=== PATIENT | male | born 1940 | race Caucasian/White ===

== ENCOUNTER 2021-03-27 11:37 | Inpatient (IN) ==
[2021-03-27 12:13] LABS: Basophils # 0.1 K/mcL (0.0-0.2); Eosinophils # 0.2 K/mcL (0.0-0.6); Eosinophils % 2.1 %; Hematocrit 37.8 % (37.5-50.1); Immature Granulocytes % 0.4 % (0-4); Lymphocytes # 1.9 K/mcL (0.6-4.6); Lymphocytes % 27.1 %; Mean Corpuscular HGB Conc 29.1 g/dL (31.6-35.5); Mean Corpuscular Hemoglobin 22.2 pg (28.0-33.3); Mean Corpuscular Volume 76.4 fL (83.0-100.0); Mean Platelet Volume 10.2 fL (9.4-12.4); Monocytes # 0.7 K/mcL (0.0-1.3); Monocytes % 10.5 %; Neutrophils # 4.2 K/mcL (1.6-8.9); Platelet Count 328 K/mcL (140-400); Red Blood Count 4.95 M/mcL (4.19-5.50); Red Cell Distribution Width 19.9 % (11.5-14.5); Segmented Neutrophils % 58.9 %; White Blood Count 7.1 K/mcL (4.3-11.1)
[2021-03-27 12:35] LABS: BUN/Creatinine Ratio 12 (6-26); Blood Urea Nitrogen 14 mg/dL (8-23); Calcium 9.4 mg/dL (8.6-10.3); Carbon Dioxide 26 mEq/L (23-29); Chloride 103 mEq/L (98-107); Glucose 97 mg/dL (70-105); Osmolality,Calculated 284 (280-300); Potassium 3.8 mEq/L (3.5-5.1); Sodium 137 mEq/L (136-145); Troponin I < 0.03 ng/mL (< 0.04); eGFR For African Americans > 60 (> 60); eGFR For Non-African Americans > 60 (> 60)
[2021-03-27 12:35] LABS: Bacteria,Urine Few per hpf (None-Few); Bilirubin,Urine Negative (Negative); Blood,Urine Trace (Negative); Calcium Oxalate Crystals,Urine Present per hpf; Clarity,Urine Clear (Clear); Color,Urine Yellow (Yellow); Glucose,Urine (UA) Normal (Normal); Ketones,Urine Negative (Negative); Leukocyte Esterase,Urine Negative (Negative); Mucus,Urine Many per lpf (None-Few); Nitrite,Urine Negative (Negative); Protein,Urine 50 mg/dL (Neg-Trace); Specific Gravity,Urine 1.021 (1.010-1.025); Squamous Epithelial Cell,Urine Few per hpf (None-Few); Urobilinogen,Urine Normal (Normal)
[2021-03-27 14:53] LABS: Magnesium 2.3 mg/dL (1.6-2.6); Phosphorous 3.3 mg/dL (2.7-4.5)
[2021-03-27] MEDS ORDERED: QUEtiapine Fumarate 25 MG TABLET PO SCH (14:57)
[2021-03-27] MEDS ORDERED: Naloxone 0.4 MG/ML INJ IVP PRN (14:59)
[2021-03-27] MEDS ORDERED: Ondansetron 4 MG/2 ML VIAL IVP PRN (14:59)
[2021-03-27] MEDS: traZODone 50 MG TABLET PO SCH ×2 (16:48→19:57)
[2021-03-27] MEDS: QUEtiapine Fumarate 100 MG TABLET PO SCH (19:56)
[2021-03-27] MEDS ORDERED: traZODone 50 MG TABLET PO SCH (21:00)
[2021-03-28] MEDS: Metoprolol XL (24 HR) Succ 25 MG TAB.ER.24H PO SCH (09:07)
[2021-03-28] MEDS: traZODone 50 MG TABLET PO SCH ×3 (09:08→21:21)
[2021-03-28] MEDS: QUEtiapine Fumarate 25 MG TABLET PO SCH ×2 (09:08→13:03)
[2021-03-28] MEDS ORDERED: QUEtiapine Fumarate 25 MG TABLET PO SCH (14:00)
[2021-03-28] MEDS: QUEtiapine Fumarate 100 MG TABLET PO SCH (21:16)
[2021-03-29] MEDS: Metoprolol XL (24 HR) Succ 25 MG TAB.ER.24H PO SCH (10:24)
[2021-03-29] MEDS: traZODone 50 MG TABLET PO SCH ×3 (10:24→22:02)
[2021-03-29] MEDS: QUEtiapine Fumarate 25 MG TABLET PO SCH ×2 (10:25→13:41)
[2021-03-29] MEDS: Melatonin 3 MG TABLET PO SCH (22:02)
[2021-03-29] MEDS: QUEtiapine Fumarate 100 MG TABLET PO SCH (22:02)
[2021-03-30] MEDS: Metoprolol XL (24 HR) Succ 25 MG TAB.ER.24H PO SCH (10:30)
[2021-03-30] MEDS: QUEtiapine Fumarate 25 MG TABLET PO SCH ×2 (10:30→15:59)
[2021-03-30] MEDS: traZODone 50 MG TABLET PO SCH ×3 (10:30→20:48)
[2021-03-30] MEDS: QUEtiapine Fumarate 100 MG TABLET PO SCH (20:48)
[2021-03-30] MEDS: Melatonin 3 MG TABLET PO SCH (20:49)
[2021-03-30] MEDS ORDERED: Haloperidol Lactate 5 MG/ML VIAL IM ONE (22:32)
[2021-03-31] MEDS: Metoprolol XL (24 HR) Succ 25 MG TAB.ER.24H PO SCH (10:04)
[2021-03-31] MEDS: QUEtiapine Fumarate 25 MG TABLET PO SCH ×2 (10:04→14:09)
[2021-03-31] MEDS: traZODone 50 MG TABLET PO SCH ×3 (10:05→21:20)
[2021-03-31] MEDS: Melatonin 3 MG TABLET PO SCH (21:18)
[2021-03-31] MEDS: QUEtiapine Fumarate 100 MG TABLET PO SCH (21:19)
[2021-04-01] MEDS: Metoprolol XL (24 HR) Succ 25 MG TAB.ER.24H PO SCH (08:25)
[2021-04-01] MEDS: traZODone 50 MG TABLET PO SCH ×3 (08:26→20:46)
[2021-04-01] MEDS: QUEtiapine Fumarate 25 MG TABLET PO SCH ×2 (08:26→15:14)
[2021-04-01] MEDS: Melatonin 3 MG TABLET PO SCH (20:46)
[2021-04-01] MEDS: QUEtiapine Fumarate 100 MG TABLET PO SCH (20:46)
[2021-04-02] MEDS: *HR* Enoxaparin 40 MG/0.4 ML SYRINGE SQ SCH (06:28)
[2021-04-02] MEDS: QUEtiapine Fumarate 25 MG TABLET PO SCH ×2 (07:51→13:46)
[2021-04-02] MEDS: traZODone 50 MG TABLET PO SCH ×3 (07:51→22:03)
[2021-04-02] MEDS: Metoprolol XL (24 HR) Succ 25 MG TAB.ER.24H PO SCH (08:20)
[2021-04-02] MEDS ORDERED: *HR* LORazepam 0.5 MG TABLET PO ONE (15:46)
[2021-04-02] MEDS ORDERED: *HR* LORazepam 2 MG/ML VIAL IVP ONE (15:48)
[2021-04-02] MEDS ORDERED: *HR* Promethazine 25 MG/ML VIAL IM ONE (15:54)
[2021-04-02] MEDS ORDERED: diazePAM 10 MG/2 ML SYRINGE IVP ONE (18:19)
[2021-04-02] MEDS: Melatonin 3 MG TABLET PO SCH (22:02)
[2021-04-02] MEDS: QUEtiapine Fumarate 100 MG TABLET PO SCH (22:08)
[2021-04-02] MEDS: *HR* LORazepam 2 MG/ML VIAL IVP PRN (22:22)
[2021-04-03] MEDS: Metoprolol XL (24 HR) Succ 25 MG TAB.ER.24H PO SCH (08:24)
[2021-04-03] MEDS: *HR* LORazepam 2 MG/ML VIAL IVP PRN ×2 (08:24→14:33)
[2021-04-03] MEDS: traZODone 50 MG TABLET PO SCH ×3 (08:24→20:59)
[2021-04-03] MEDS: QUEtiapine Fumarate 25 MG TABLET PO SCH ×2 (08:24→14:34)
[2021-04-03] MEDS: *HR* Enoxaparin 40 MG/0.4 ML SYRINGE SQ SCH (08:31)
[2021-04-03] MEDS: Melatonin 3 MG TABLET PO SCH (20:58)
[2021-04-03] MEDS: QUEtiapine Fumarate 100 MG TABLET PO SCH (20:58)
[2021-04-04 02:15] LABS: Basophils # 0.1 K/mcL (0.0-0.2); Basophils % 1.3 %; Eosinophils # 0.2 K/mcL (0.0-0.6); Eosinophils % 3.6 %; Hematocrit 39.6 % (37.5-50.1); Hemoglobin 11.9 g/dL (12.9-16.9); Immature Granulocytes % 0.2 % (0-4); Lymphocytes # 2.4 K/mcL (0.6-4.6); Lymphocytes % 37.8 %; Mean Corpuscular HGB Conc 30.1 g/dL (31.6-35.5); Mean Corpuscular Hemoglobin 23.2 pg (28.0-33.3); Mean Corpuscular Volume 77.3 fL (83.0-100.0); Mean Platelet Volume 10.3 fL (9.4-12.4); Monocytes # 0.6 K/mcL (0.0-1.3); Monocytes % 8.7 %; Neutrophils # 3.1 K/mcL (1.6-8.9); Platelet Count 276 K/mcL (140-400); Red Blood Count 5.12 M/mcL (4.19-5.50); Red Cell Distribution Width 21.9 % (11.5-14.5); Segmented Neutrophils % 48.4 %; White Blood Count 6.4 K/mcL (4.3-11.1)
[2021-04-04 02:33] LABS: BUN/Creatinine Ratio 13 (6-26); Blood Urea Nitrogen 14 mg/dL (8-23); Calcium 9.2 mg/dL (8.6-10.3); Carbon Dioxide 23 mEq/L (23-29); Chloride 106 mEq/L (98-107); Glucose 92 mg/dL (70-105); Magnesium 2.2 mg/dL (1.6-2.6); Osmolality,Calculated 286 (280-300); Potassium 3.6 mEq/L (3.5-5.1); Sodium 138 mEq/L (136-145); eGFR For African Americans > 60 (> 60); eGFR For Non-African Americans > 60 (> 60)
[2021-04-04] MEDS: *HR* Enoxaparin 40 MG/0.4 ML SYRINGE SQ SCH (05:46)
[2021-04-04] MEDS: QUEtiapine Fumarate 25 MG TABLET PO SCH ×2 (09:25→16:45)
[2021-04-04] MEDS: traZODone 50 MG TABLET PO SCH ×3 (09:25→20:01)
[2021-04-04] MEDS: Metoprolol XL (24 HR) Succ 25 MG TAB.ER.24H PO SCH (09:25)
[2021-04-04] MEDS: QUEtiapine Fumarate 100 MG TABLET PO SCH (20:00)
[2021-04-04] MEDS: Melatonin 3 MG TABLET PO SCH (20:00)
[2021-04-05 03:04] LABS: Campylobacter by PCR Not detected (Not detect)
[2021-04-05 03:05] LABS: Adenovirus F 40/41 PCR Not detected (Not detect); Astrovirus PCR Not detected (Not detect); C.difficile Toxin A/B Gene PCR DETECTED (Not detect); Cryptosporidium by PCR Not detected (Not detect); Cyclospora cayetanensis PCR Not detected (Not detect); E. coli O157 by PCR Not detected (Not detect); Entamoeba histolytica PCR Not detected (Not detect); Enteroaggregative E.coli(EAEC) Not detected (Not detect); Enteropathogenic E.coli(EPEC) Not detected (Not detect); Enterotoxigenic E.coli (ETEC) Not detected (Not detect); Giardia lamblia PCR Not detected (Not detect); Norovirus GI/GII PCR Not detected (Not detect); Plesiomonas shigelloides PCR Not detected (Not detect); Rotavirus A PCR Not detected (Not detect); Salmonella PCR Not detected (Not detect); Sapovirus PCR Not detected (Not detect); Shig/EnteroinvasiveE coli EIEC Not detected (Not detect); Shigalike tox-prod E coli STEC Not detected (Not detect); Vibrio PCR Not detected (Not detect); Vibrio cholerae PCR Not detected (Not detect); Yersinia enterocolitica PCR Not detected (Not detect)
[2021-04-05] MEDS: *HR* Enoxaparin 40 MG/0.4 ML SYRINGE SQ SCH (06:15)
[2021-04-05] MEDS: Metoprolol XL (24 HR) Succ 25 MG TAB.ER.24H PO SCH (10:07)
[2021-04-05] MEDS: QUEtiapine Fumarate 25 MG TABLET PO SCH ×2 (10:07→17:27)
[2021-04-05] MEDS: traZODone 50 MG TABLET PO SCH ×3 (10:07→20:56)
[2021-04-05] MEDS ORDERED: diazePAM 5 MG TABLET PO ONE ×2 (17:32→20:47)
[2021-04-05] MEDS: Vancomycin Oral Soln 125 MG/2.5 ML UDC PO SCH ×2 (17:32→20:56)
[2021-04-05 19:41] LABS: Basophils # 0.1 K/mcL (0.0-0.2); Basophils % 0.8 %; Eosinophils # 0.2 K/mcL (0.0-0.6); Eosinophils % 1.7 %; Hematocrit 40.5 % (37.5-50.1); Hemoglobin 11.8 g/dL (12.9-16.9); Immature Granulocytes % 0.3 % (0-4); Lymphocytes # 2.7 K/mcL (0.6-4.6); Lymphocytes % 28.5 %; Mean Corpuscular HGB Conc 29.1 g/dL (31.6-35.5); Mean Corpuscular Hemoglobin 22.7 pg (28.0-33.3); Mean Platelet Volume 9.8 fL (9.4-12.4); Monocytes % 10.7 %; Neutrophils # 5.4 K/mcL (1.6-8.9); Platelet Count 315 K/mcL (140-400); Red Blood Count 5.19 M/mcL (4.19-5.50); Red Cell Distribution Width 21.7 % (11.5-14.5); White Blood Count 9.3 K/mcL (4.3-11.1)
[2021-04-05 19:49] LABS: BUN/Creatinine Ratio 14 (6-26); Blood Urea Nitrogen 19 mg/dL (8-23); Calcium 10.1 mg/dL (8.6-10.3); Carbon Dioxide 30 mEq/L (23-29); Chloride 103 mEq/L (98-107); Glucose 113 mg/dL (70-105); Magnesium 2.2 mg/dL (1.6-2.6); Osmolality,Calculated 291 (280-300); Potassium 4.1 mEq/L (3.5-5.1); Sodium 139 mEq/L (136-145); eGFR For African Americans > 60 (> 60); eGFR For Non-African Americans 50 (> 60)
[2021-04-05] MEDS: QUEtiapine Fumarate 100 MG TABLET PO SCH (20:55)
[2021-04-05] MEDS: Melatonin 3 MG TABLET PO SCH (20:56)
[2021-04-06 04:38] LABS: Basophils # 0.1 K/mcL (0.0-0.2); Eosinophils # 0.3 K/mcL (0.0-0.6); Eosinophils % 3.7 %; Hematocrit 35.4 % (37.5-50.1); Hemoglobin 10.4 g/dL (12.9-16.9); Immature Granulocytes % 0.4 % (0-4); Lymphocytes # 2.6 K/mcL (0.6-4.6); Mean Corpuscular HGB Conc 29.4 g/dL (31.6-35.5); Mean Corpuscular Hemoglobin 22.8 pg (28.0-33.3); Mean Corpuscular Volume 77.6 fL (83.0-100.0); Mean Platelet Volume 9.8 fL (9.4-12.4); Monocytes # 0.9 K/mcL (0.0-1.3); Monocytes % 12.4 %; Neutrophils # 3.2 K/mcL (1.6-8.9); Platelet Count 246 K/mcL (140-400); Red Blood Count 4.56 M/mcL (4.19-5.50); Red Cell Distribution Width 21.9 % (11.5-14.5); Segmented Neutrophils % 45.5 %; White Blood Count 7.1 K/mcL (4.3-11.1)
[2021-04-06 04:50] LABS: BUN/Creatinine Ratio 14 (6-26); Blood Urea Nitrogen 17 mg/dL (8-23); Calcium 9.2 mg/dL (8.6-10.3); Carbon Dioxide 28 mEq/L (23-29); Chloride 105 mEq/L (98-107); Glucose 89 mg/dL (70-105); Magnesium 2.2 mg/dL (1.6-2.6); Osmolality,Calculated 289 (280-300); Potassium 3.9 mEq/L (3.5-5.1); Sodium 139 mEq/L (136-145); eGFR For African Americans > 60 (> 60); eGFR For Non-African Americans 58 (> 60)
[2021-04-06] MEDS: QUEtiapine Fumarate 25 MG TABLET PO SCH ×2 (10:19→13:41)
[2021-04-06] MEDS: traZODone 50 MG TABLET PO SCH ×3 (10:19→19:46)
[2021-04-06] MEDS: Vancomycin Oral Soln 125 MG/2.5 ML UDC PO SCH ×4 (10:19→19:50)
[2021-04-06] MEDS: Metoprolol XL (24 HR) Succ 25 MG TAB.ER.24H PO SCH (10:19)
[2021-04-06] MEDS: *HR* Enoxaparin 40 MG/0.4 ML SYRINGE SQ SCH (10:19)
[2021-04-06] MEDS ORDERED: diazePAM 5 MG TABLET PO ONE (14:26)
[2021-04-06] MEDS: QUEtiapine Fumarate 100 MG TABLET PO SCH (19:45)
[2021-04-06] MEDS: Melatonin 3 MG TABLET PO SCH (19:46)
[2021-04-07] MEDS ORDERED: Ringers Solution, Lactated 1,000 ML IVC ONE (10:05)
[2021-04-07] MEDS: Vancomycin Oral Soln 125 MG/2.5 ML UDC PO SCH ×4 (10:17→22:19)
[2021-04-07] MEDS: traZODone 50 MG TABLET PO SCH ×3 (10:18→22:20)
[2021-04-07] MEDS: QUEtiapine Fumarate 25 MG TABLET PO SCH ×2 (10:18→14:56)
[2021-04-07] MEDS: *HR* Enoxaparin 40 MG/0.4 ML SYRINGE SQ SCH (10:18)
[2021-04-07] MEDS: Metoprolol XL (24 HR) Succ 25 MG TAB.ER.24H PO SCH (10:18)
[2021-04-07] MEDS: Melatonin 3 MG TABLET PO SCH (22:20)
[2021-04-07] MEDS: QUEtiapine Fumarate 100 MG TABLET PO SCH (22:20)
[2021-04-08] MEDS: traZODone 50 MG TABLET PO SCH ×3 (11:21→20:25)
[2021-04-08] MEDS: Vancomycin Oral Soln 125 MG/2.5 ML UDC PO SCH ×4 (11:21→20:25)
[2021-04-08] MEDS: *HR* Enoxaparin 40 MG/0.4 ML SYRINGE SQ SCH (11:21)
[2021-04-08] MEDS: Metoprolol XL (24 HR) Succ 25 MG TAB.ER.24H PO SCH (11:22)
[2021-04-08] MEDS: QUEtiapine Fumarate 25 MG TABLET PO SCH ×2 (11:22→14:17)
[2021-04-08] MEDS: QUEtiapine Fumarate 100 MG TABLET PO SCH (20:24)
[2021-04-08] MEDS: Melatonin 3 MG TABLET PO SCH (20:24)
[2021-04-09] MEDS: *HR* Enoxaparin 40 MG/0.4 ML SYRINGE SQ SCH (05:57)
[2021-04-09] MEDS: QUEtiapine Fumarate 25 MG TABLET PO SCH ×2 (08:50→13:57)
[2021-04-09] MEDS: Metoprolol XL (24 HR) Succ 25 MG TAB.ER.24H PO SCH (08:50)
[2021-04-09] MEDS: Vancomycin Oral Soln 125 MG/2.5 ML UDC PO SCH ×4 (08:50→21:06)
[2021-04-09] MEDS: traZODone 50 MG TABLET PO SCH ×3 (08:50→21:05)
[2021-04-09] MEDS: QUEtiapine Fumarate 100 MG TABLET PO SCH (21:06)
[2021-04-09] MEDS: Melatonin 3 MG TABLET PO SCH (21:06)
[2021-04-10] MEDS: *HR* Enoxaparin 40 MG/0.4 ML SYRINGE SQ SCH (10:36)
[2021-04-10] MEDS: Metoprolol XL (24 HR) Succ 25 MG TAB.ER.24H PO SCH (10:37)
[2021-04-10] MEDS: QUEtiapine Fumarate 25 MG TABLET PO SCH ×2 (10:37→14:18)
[2021-04-10] MEDS: Vancomycin Oral Soln 125 MG/2.5 ML UDC PO SCH ×4 (10:37→20:19)
[2021-04-10] MEDS: traZODone 50 MG TABLET PO SCH ×3 (10:37→20:16)
[2021-04-10] MEDS: Melatonin 3 MG TABLET PO SCH (20:15)
[2021-04-10] MEDS: QUEtiapine Fumarate 100 MG TABLET PO SCH (20:15)
[2021-04-11] MEDS ORDERED: Haloperidol Lactate 5 MG/ML VIAL IM ONE ×2 (02:24→18:57)
[2021-04-11] MEDS: *HR* Enoxaparin 40 MG/0.4 ML SYRINGE SQ SCH (06:21)
[2021-04-11] MEDS: traZODone 50 MG TABLET PO SCH ×3 (09:21→20:13)
[2021-04-11] MEDS: QUEtiapine Fumarate 25 MG TABLET PO SCH ×2 (09:21→13:27)
[2021-04-11] MEDS: Metoprolol XL (24 HR) Succ 25 MG TAB.ER.24H PO SCH (09:22)
[2021-04-11] MEDS: Vancomycin Oral Soln 125 MG/2.5 ML UDC PO SCH ×4 (09:23→20:14)
[2021-04-11] MEDS: QUEtiapine Fumarate 100 MG TABLET PO SCH (20:12)
[2021-04-11] MEDS: Melatonin 3 MG TABLET PO SCH (20:12)
[2021-04-12] MEDS: *HR* Enoxaparin 40 MG/0.4 ML SYRINGE SQ SCH (06:32)
[2021-04-12] MEDS: traZODone 50 MG TABLET PO SCH ×3 (08:25→21:32)
[2021-04-12] MEDS: Metoprolol XL (24 HR) Succ 25 MG TAB.ER.24H PO SCH (08:25)
[2021-04-12] MEDS: Vancomycin Oral Soln 125 MG/2.5 ML UDC PO SCH ×4 (08:25→21:33)
[2021-04-12] MEDS: QUEtiapine Fumarate 25 MG TABLET PO SCH ×2 (08:27→14:05)
[2021-04-12] MEDS: Melatonin 3 MG TABLET PO SCH (21:33)
[2021-04-12] MEDS: QUEtiapine Fumarate 100 MG TABLET PO SCH (21:33)
[2021-04-13] MEDS: *HR* Enoxaparin 40 MG/0.4 ML SYRINGE SQ SCH (06:27)
[2021-04-13 07:05] LABS: Hematocrit 39.8 % (37.5-50.1); Hemoglobin 11.9 g/dL (12.9-16.9); Mean Corpuscular HGB Conc 29.9 g/dL (31.6-35.5); Mean Corpuscular Hemoglobin 23.3 pg (28.0-33.3); Mean Corpuscular Volume 77.9 fL (83.0-100.0); Mean Platelet Volume 10.2 fL (9.4-12.4); Platelet Count 259 K/mcL (140-400); Red Blood Count 5.11 M/mcL (4.19-5.50); Red Cell Distribution Width 22.1 % (11.5-14.5); White Blood Count 9.5 K/mcL (4.3-11.1)
[2021-04-13 07:25] LABS: BUN/Creatinine Ratio 24 (6-26); Blood Urea Nitrogen 28 mg/dL (8-23); Carbon Dioxide 26 mEq/L (23-29); Chloride 104 mEq/L (98-107); Potassium 4.5 mEq/L (3.5-5.1); Sodium 137 mEq/L (136-145); eGFR For African Americans > 60 (> 60)
[2021-04-13 07:26] LABS: Calcium 9.7 mg/dL (8.6-10.3); Glucose 91 mg/dL (70-105); Magnesium 2.2 mg/dL (1.6-2.6); Osmolality,Calculated 289 (280-300); eGFR For Non-African Americans 59 (> 60)
[2021-04-13] MEDS: Vancomycin Oral Soln 125 MG/2.5 ML UDC PO SCH ×4 (11:18→21:52)
[2021-04-13] MEDS: QUEtiapine Fumarate 25 MG TABLET PO SCH ×2 (11:18→14:46)
[2021-04-13] MEDS: traZODone 50 MG TABLET PO SCH ×3 (11:19→21:50)
[2021-04-13] MEDS: Metoprolol XL (24 HR) Succ 25 MG TAB.ER.24H PO SCH (11:19)
[2021-04-13] MEDS: QUEtiapine Fumarate 100 MG TABLET PO SCH (21:50)
[2021-04-13] MEDS: Melatonin 3 MG TABLET PO SCH (21:50)
[2021-04-14] MEDS: *HR* Enoxaparin 40 MG/0.4 ML SYRINGE SQ SCH (07:02)
[2021-04-14] MEDS: Metoprolol XL (24 HR) Succ 25 MG TAB.ER.24H PO SCH (08:09)
[2021-04-14] MEDS: traZODone 50 MG TABLET PO SCH ×3 (08:09→20:02)
[2021-04-14] MEDS: QUEtiapine Fumarate 25 MG TABLET PO SCH ×2 (08:10→14:39)
[2021-04-14] MEDS: Vancomycin Oral Soln 125 MG/2.5 ML UDC PO SCH ×4 (08:10→20:02)
[2021-04-14] MEDS: Melatonin 3 MG TABLET PO SCH (20:02)
[2021-04-14] MEDS: QUEtiapine Fumarate 100 MG TABLET PO SCH (20:19)
[2021-04-15] MEDS: Haloperidol Lactate 5 MG/ML VIAL IM PRN ×2 (04:14→20:27)
[2021-04-15] MEDS: traZODone 50 MG TABLET PO SCH ×3 (08:38→20:27)
[2021-04-15] MEDS: QUEtiapine Fumarate 25 MG TABLET PO SCH ×2 (08:38→13:44)
[2021-04-15] MEDS: Vancomycin Oral Soln 125 MG/2.5 ML UDC PO SCH ×2 (08:39→13:43)
[2021-04-15] MEDS: Metoprolol XL (24 HR) Succ 25 MG TAB.ER.24H PO SCH (08:39)
[2021-04-15] MEDS: *HR* Enoxaparin 40 MG/0.4 ML SYRINGE SQ SCH (08:46)
[2021-04-15] MEDS: QUEtiapine Fumarate 100 MG TABLET PO SCH (20:27)
[2021-04-15] MEDS: Melatonin 3 MG TABLET PO SCH (20:27)
[2021-04-16] MEDS: *HR* Enoxaparin 40 MG/0.4 ML SYRINGE SQ SCH (06:07)
[2021-04-16] MEDS: QUEtiapine Fumarate 25 MG TABLET PO SCH ×2 (09:55→14:40)
[2021-04-16] MEDS: traZODone 50 MG TABLET PO SCH ×3 (09:55→20:26)
[2021-04-16] MEDS: Metoprolol XL (24 HR) Succ 25 MG TAB.ER.24H PO SCH (09:55)
[2021-04-16] MEDS: Melatonin 3 MG TABLET PO SCH (20:26)
[2021-04-16] MEDS: QUEtiapine Fumarate 100 MG TABLET PO SCH (20:26)
[2021-04-17] MEDS: *HR* Enoxaparin 40 MG/0.4 ML SYRINGE SQ SCH (05:28)
[2021-04-17 06:45] LABS: Basophils # 0.1 K/mcL (0.0-0.2); Basophils % 0.8 %; Eosinophils # 0.3 K/mcL (0.0-0.6); Eosinophils % 2.5 %; Hematocrit 44.7 % (37.5-50.1); Immature Granulocytes % 0.4 % (0-4); Lymphocytes # 2.7 K/mcL (0.6-4.6); Lymphocytes % 27.1 %; Mean Corpuscular HGB Conc 29.1 g/dL (31.6-35.5); Mean Corpuscular Hemoglobin 22.8 pg (28.0-33.3); Mean Corpuscular Volume 78.4 fL (83.0-100.0); Monocytes # 1.1 K/mcL (0.0-1.3); Neutrophils # 5.9 K/mcL (1.6-8.9); Platelet Count 298 K/mcL (140-400); Red Cell Distribution Width 22.2 % (11.5-14.5); Segmented Neutrophils % 58.2 %; White Blood Count 10.1 K/mcL (4.3-11.1)
[2021-04-17 06:59] LABS: BUN/Creatinine Ratio 18 (6-26); Blood Urea Nitrogen 23 mg/dL (8-23); Carbon Dioxide 24 mEq/L (23-29); Chloride 102 mEq/L (98-107); Glucose 103 mg/dL (70-105); Magnesium 2.3 mg/dL (1.6-2.6); Osmolality,Calculated 286 (280-300); Potassium 4.4 mEq/L (3.5-5.1); Sodium 136 mEq/L (136-145); eGFR For African Americans > 60 (> 60); eGFR For Non-African Americans 54 (> 60)
[2021-04-17] MEDS: traZODone 50 MG TABLET PO SCH ×3 (07:44→21:28)
[2021-04-17] MEDS: QUEtiapine Fumarate 25 MG TABLET PO SCH ×2 (07:44→15:09)
[2021-04-17] MEDS: Metoprolol XL (24 HR) Succ 25 MG TAB.ER.24H PO SCH (07:44)
[2021-04-17] MEDS: Melatonin 3 MG TABLET PO SCH (21:28)
[2021-04-17] MEDS: QUEtiapine Fumarate 100 MG TABLET PO SCH (21:28)
[2021-04-18] MEDS: *HR* Enoxaparin 40 MG/0.4 ML SYRINGE SQ SCH (09:50)
[2021-04-18] MEDS: Metoprolol XL (24 HR) Succ 25 MG TAB.ER.24H PO SCH (09:50)
[2021-04-18] MEDS: QUEtiapine Fumarate 25 MG TABLET PO SCH ×2 (09:50→17:15)
[2021-04-18] MEDS: traZODone 50 MG TABLET PO SCH ×3 (09:50→19:59)
[2021-04-18] MEDS: QUEtiapine Fumarate 100 MG TABLET PO SCH (19:59)
[2021-04-18] MEDS: Melatonin 3 MG TABLET PO SCH (19:59)
[2021-04-19] MEDS: *HR* Enoxaparin 40 MG/0.4 ML SYRINGE SQ SCH (05:51)
[2021-04-19] MEDS: Metoprolol XL (24 HR) Succ 25 MG TAB.ER.24H PO SCH (09:39)
[2021-04-19] MEDS: traZODone 50 MG TABLET PO SCH ×3 (09:40→19:28)
[2021-04-19] MEDS: QUEtiapine Fumarate 25 MG TABLET PO SCH (16:34)
[2021-04-19] MEDS: QUEtiapine Fumarate 100 MG TABLET PO SCH (19:28)
[2021-04-19] MEDS: Melatonin 3 MG TABLET PO SCH (19:28)
[2021-04-19] MEDS: Haloperidol Lactate 5 MG/ML VIAL IM PRN (19:29)
[2021-04-19] MEDS: Acetaminophen 325 MG TABLET PO PRN (19:29)
[2021-04-20] MEDS: *HR* Enoxaparin 40 MG/0.4 ML SYRINGE SQ SCH (05:27)
[2021-04-20] MEDS: Metoprolol XL (24 HR) Succ 25 MG TAB.ER.24H PO SCH (08:42)
[2021-04-20] MEDS: traZODone 50 MG TABLET PO SCH ×3 (08:42→23:27)
[2021-04-20] MEDS: QUEtiapine Fumarate 25 MG TABLET PO SCH ×2 (08:42→15:15)
[2021-04-20] MEDS: QUEtiapine Fumarate 100 MG TABLET PO SCH (23:27)
[2021-04-20] MEDS: Melatonin 3 MG TABLET PO SCH (23:28)
[2021-04-21] MEDS: *HR* Enoxaparin 40 MG/0.4 ML SYRINGE SQ SCH (04:57)
[2021-04-21] MEDS: Metoprolol XL (24 HR) Succ 25 MG TAB.ER.24H PO SCH (10:26)
[2021-04-21] MEDS: QUEtiapine Fumarate 25 MG TABLET PO SCH ×2 (10:26→14:55)
[2021-04-21] MEDS: traZODone 50 MG TABLET PO SCH ×3 (10:26→20:18)
[2021-04-21] MEDS: QUEtiapine Fumarate 100 MG TABLET PO SCH (20:18)
[2021-04-21] MEDS: Melatonin 3 MG TABLET PO SCH (20:18)
[2021-04-21] MEDS: Haloperidol Lactate 5 MG/ML VIAL IM PRN (21:36)
[2021-04-22] MEDS: *HR* Enoxaparin 40 MG/0.4 ML SYRINGE SQ SCH (05:58)
[2021-04-22] MEDS: Metoprolol XL (24 HR) Succ 25 MG TAB.ER.24H PO SCH (08:04)
[2021-04-22] MEDS: QUEtiapine Fumarate 25 MG TABLET PO SCH ×2 (08:04→14:03)
[2021-04-22] MEDS: traZODone 50 MG TABLET PO SCH ×3 (08:04→21:23)
[2021-04-22] MEDS: Melatonin 3 MG TABLET PO SCH (21:23)
[2021-04-22] MEDS: QUEtiapine Fumarate 100 MG TABLET PO SCH (21:23)
[2021-04-23] MEDS: Haloperidol Lactate 5 MG/ML VIAL IM PRN (03:16)
[2021-04-23] MEDS: QUEtiapine Fumarate 25 MG TABLET PO SCH ×2 (08:43→13:21)
[2021-04-23] MEDS: traZODone 50 MG TABLET PO SCH ×3 (08:43→21:53)
[2021-04-23] MEDS: Metoprolol XL (24 HR) Succ 25 MG TAB.ER.24H PO SCH (08:43)
[2021-04-23] MEDS: *HR* Enoxaparin 40 MG/0.4 ML SYRINGE SQ SCH (08:43)
[2021-04-23] MEDS: Melatonin 3 MG TABLET PO SCH ×2 (21:47→21:54)
[2021-04-23] MEDS: QUEtiapine Fumarate 100 MG TABLET PO SCH ×2 (21:48→21:54)
[2021-04-24] MEDS: traZODone 50 MG TABLET PO SCH ×3 (09:58→20:48)
[2021-04-24] MEDS: *HR* Enoxaparin 40 MG/0.4 ML SYRINGE SQ SCH (09:59)
[2021-04-24] MEDS: QUEtiapine Fumarate 25 MG TABLET PO SCH ×2 (09:59→16:00)
[2021-04-24] MEDS: Metoprolol XL (24 HR) Succ 25 MG TAB.ER.24H PO SCH (10:00)
[2021-04-24] MEDS: Haloperidol Lactate 5 MG/ML VIAL IM PRN (23:30)
[2021-04-25] MEDS: QUEtiapine Fumarate 25 MG TABLET PO SCH ×2 (11:27→15:53)
[2021-04-25] MEDS: traZODone 50 MG TABLET PO SCH ×3 (11:27→19:49)
[2021-04-25] MEDS: Metoprolol XL (24 HR) Succ 25 MG TAB.ER.24H PO SCH (11:28)
[2021-04-25] MEDS: *HR* Enoxaparin 40 MG/0.4 ML SYRINGE SQ SCH (11:31)
[2021-04-25] MEDS: Melatonin 3 MG TABLET PO SCH (19:49)
[2021-04-25] MEDS: QUEtiapine Fumarate 100 MG TABLET PO SCH (19:50)
[2021-04-26] MEDS: *HR* Enoxaparin 40 MG/0.4 ML SYRINGE SQ SCH (06:45)
[2021-04-26] MEDS: traZODone 50 MG TABLET PO SCH ×3 (09:28→19:52)
[2021-04-26] MEDS: QUEtiapine Fumarate 25 MG TABLET PO SCH ×2 (09:28→15:52)
[2021-04-26] MEDS: Metoprolol XL (24 HR) Succ 25 MG TAB.ER.24H PO SCH (09:29)
[2021-04-26] MEDS: Melatonin 3 MG TABLET PO SCH (19:52)
[2021-04-26] MEDS: QUEtiapine Fumarate 100 MG TABLET PO SCH (19:52)
[2021-04-27] MEDS: *HR* Enoxaparin 40 MG/0.4 ML SYRINGE SQ SCH (06:23)
[2021-04-27] MEDS: QUEtiapine Fumarate 25 MG TABLET PO SCH ×2 (09:34→15:19)
[2021-04-27] MEDS: Metoprolol XL (24 HR) Succ 25 MG TAB.ER.24H PO SCH (09:34)
[2021-04-27] MEDS: traZODone 50 MG TABLET PO SCH ×3 (09:34→20:47)
[2021-04-27] MEDS: QUEtiapine Fumarate 100 MG TABLET PO SCH (20:47)
[2021-04-27] MEDS: Melatonin 3 MG TABLET PO SCH (20:47)
[2021-04-28] MEDS: Haloperidol Lactate 5 MG/ML VIAL IM PRN (04:42)
[2021-04-28] MEDS: *HR* Enoxaparin 40 MG/0.4 ML SYRINGE SQ SCH (06:05)
[2021-04-28] MEDS: traZODone 50 MG TABLET PO SCH ×3 (08:52→21:32)
[2021-04-28] MEDS: QUEtiapine Fumarate 25 MG TABLET PO SCH ×2 (08:52→15:14)
[2021-04-28] MEDS: Metoprolol XL (24 HR) Succ 25 MG TAB.ER.24H PO SCH (08:52)
[2021-04-28] MEDS: QUEtiapine Fumarate 100 MG TABLET PO SCH (21:31)
[2021-04-28] MEDS: Melatonin 3 MG TABLET PO SCH (21:31)
[2021-04-29] MEDS: *HR* Enoxaparin 40 MG/0.4 ML SYRINGE SQ SCH (05:51)
[2021-04-29] MEDS: QUEtiapine Fumarate 25 MG TABLET PO SCH ×2 (08:13→13:51)
[2021-04-29] MEDS: traZODone 50 MG TABLET PO SCH ×3 (08:14→20:55)
[2021-04-29] MEDS: Metoprolol XL (24 HR) Succ 25 MG TAB.ER.24H PO SCH (08:14)
[2021-04-29] MEDS: QUEtiapine Fumarate 100 MG TABLET PO SCH (20:55)
[2021-04-29] MEDS: Melatonin 3 MG TABLET PO SCH (20:55)
[2021-04-30 02:32] LABS: Basophils # 0.1 K/mcL (0.0-0.2); Basophils % 0.6 %; Eosinophils # 0.3 K/mcL (0.0-0.6); Eosinophils % 2.4 %; Hemoglobin 11.3 g/dL (12.9-16.9); Immature Granulocytes % 0.3 % (0-4); Lymphocytes # 2.8 K/mcL (0.6-4.6); Lymphocytes % 24.5 %; Mean Corpuscular HGB Conc 31.4 g/dL (31.6-35.5); Mean Corpuscular Hemoglobin 24.1 pg (28.0-33.3); Mean Corpuscular Volume 76.9 fL (83.0-100.0); Monocytes # 1.2 K/mcL (0.0-1.3); Monocytes % 10.3 %; Neutrophils # 6.9 K/mcL (1.6-8.9); Platelet Count 280 K/mcL (140-400); Red Blood Count 4.68 M/mcL (4.19-5.50); Red Cell Distribution Width 21.3 % (11.5-14.5); Segmented Neutrophils % 61.9 %; White Blood Count 11.2 K/mcL (4.3-11.1)
[2021-04-30 02:49] LABS: BUN/Creatinine Ratio 21 (6-26); Blood Urea Nitrogen 24 mg/dL (8-23); Calcium 9.3 mg/dL (8.6-10.3); Carbon Dioxide 26 mEq/L (23-29); Chloride 105 mEq/L (98-107); Glucose 104 mg/dL (70-105); Magnesium 2.1 mg/dL (1.6-2.6); Osmolality,Calculated 290 (280-300); Phosphorous 3.3 mg/dL (2.7-4.5); Potassium 4.1 mEq/L (3.5-5.1); Sodium 138 mEq/L (136-145); eGFR For African Americans > 60 (> 60); eGFR For Non-African Americans > 60 (> 60)
[2021-04-30] MEDS: Haloperidol Lactate 5 MG/ML VIAL IM PRN (05:46)
[2021-04-30] MEDS: Metoprolol XL (24 HR) Succ 25 MG TAB.ER.24H PO SCH (08:43)
[2021-04-30] MEDS: QUEtiapine Fumarate 25 MG TABLET PO SCH ×3 (08:43→14:19)
[2021-04-30] MEDS: traZODone 50 MG TABLET PO SCH ×4 (08:43→19:57)
[2021-04-30] MEDS: *HR* Enoxaparin 40 MG/0.4 ML SYRINGE SQ SCH (08:43)
[2021-04-30] MEDS: QUEtiapine Fumarate 100 MG TABLET PO SCH (19:57)
[2021-04-30] MEDS: Melatonin 3 MG TABLET PO SCH (19:57)
[2021-05-01] MEDS: Metoprolol XL (24 HR) Succ 25 MG TAB.ER.24H PO SCH (08:38)
[2021-05-01] MEDS: traZODone 50 MG TABLET PO SCH ×3 (08:38→20:47)
[2021-05-01] MEDS: *HR* Enoxaparin 40 MG/0.4 ML SYRINGE SQ SCH (08:39)
[2021-05-01] MEDS: QUEtiapine Fumarate 25 MG TABLET PO SCH ×2 (08:39→13:04)
[2021-05-01] MEDS: QUEtiapine Fumarate 100 MG TABLET PO SCH (20:46)
[2021-05-01] MEDS: Melatonin 3 MG TABLET PO SCH (20:47)
[2021-05-02] MEDS: traZODone 50 MG TABLET PO SCH ×3 (08:45→20:48)
[2021-05-02] MEDS: QUEtiapine Fumarate 25 MG TABLET PO SCH ×2 (08:45→16:10)
[2021-05-02] MEDS: *HR* Enoxaparin 40 MG/0.4 ML SYRINGE SQ SCH (08:45)
[2021-05-02] MEDS: Metoprolol XL (24 HR) Succ 25 MG TAB.ER.24H PO SCH (08:46)
[2021-05-02] MEDS: Melatonin 3 MG TABLET PO SCH (20:49)
[2021-05-02] MEDS: QUEtiapine Fumarate 100 MG TABLET PO SCH (20:49)
[2021-05-03] MEDS: Metoprolol XL (24 HR) Succ 25 MG TAB.ER.24H PO SCH (10:02)
[2021-05-03] MEDS: QUEtiapine Fumarate 25 MG TABLET PO SCH ×2 (10:02→17:04)
[2021-05-03] MEDS: traZODone 50 MG TABLET PO SCH ×3 (10:02→21:10)
[2021-05-03] MEDS: *HR* Enoxaparin 40 MG/0.4 ML SYRINGE SQ SCH (10:02)
[2021-05-03] MEDS: QUEtiapine Fumarate 100 MG TABLET PO SCH (21:10)
[2021-05-03] MEDS: Melatonin 3 MG TABLET PO SCH (21:10)
[2021-05-04] MEDS: Metoprolol XL (24 HR) Succ 50 MG TAB.ER.24H PO SCH (08:27)
[2021-05-04] MEDS: QUEtiapine Fumarate 25 MG TABLET PO SCH ×2 (08:27→14:07)
[2021-05-04] MEDS: traZODone 50 MG TABLET PO SCH ×3 (08:27→22:17)
[2021-05-04] MEDS: *HR* Enoxaparin 40 MG/0.4 ML SYRINGE SQ SCH (08:27)
[2021-05-04] MEDS ORDERED: Artificial Tears SOLN 15 ML BOTTLE BOTH EYES PRN (11:23)
[2021-05-04] MEDS: Melatonin 3 MG TABLET PO SCH (22:17)
[2021-05-04] MEDS: QUEtiapine Fumarate 100 MG TABLET PO SCH (22:17)
[2021-05-04] MEDS: Lactobacillus 1 EACH CAP.SPRINK PO SCH (22:17)
[2021-05-05] MEDS: *HR* Enoxaparin 40 MG/0.4 ML SYRINGE SQ SCH (05:27)
[2021-05-05] MEDS: Multivit/Ca/Min/Fe/FA 1 TAB TABLET PO SCH (13:07)
[2021-05-05] MEDS: QUEtiapine Fumarate 25 MG TABLET PO SCH ×2 (13:07→17:19)
[2021-05-05] MEDS: traZODone 50 MG TABLET PO SCH ×3 (13:07→20:38)
[2021-05-05] MEDS: Metoprolol XL (24 HR) Succ 50 MG TAB.ER.24H PO SCH (13:07)
[2021-05-05] MEDS: Lactobacillus 1 EACH CAP.SPRINK PO SCH ×2 (13:07→20:39)
[2021-05-05] MEDS: QUEtiapine Fumarate 100 MG TABLET PO SCH (20:39)
[2021-05-05] MEDS: Melatonin 3 MG TABLET PO SCH (20:39)
[2021-05-06] MEDS: QUEtiapine Fumarate 25 MG TABLET PO SCH ×2 (09:54→15:17)
[2021-05-06] MEDS: Metoprolol XL (24 HR) Succ 50 MG TAB.ER.24H PO SCH (09:55)
[2021-05-06] MEDS: traZODone 50 MG TABLET PO SCH ×3 (09:55→20:13)
[2021-05-06] MEDS: Lactobacillus 1 EACH CAP.SPRINK PO SCH ×2 (09:55→20:14)
[2021-05-06] MEDS: *HR* Enoxaparin 40 MG/0.4 ML SYRINGE SQ SCH (09:55)
[2021-05-06] MEDS: Multivit/Ca/Min/Fe/FA 1 TAB TABLET PO SCH (09:58)
[2021-05-06] MEDS: QUEtiapine Fumarate 100 MG TABLET PO SCH (20:13)
[2021-05-06] MEDS: Melatonin 3 MG TABLET PO SCH (20:14)
[2021-05-07] MEDS: *HR* Enoxaparin 40 MG/0.4 ML SYRINGE SQ SCH (05:52)
[2021-05-07] MEDS: QUEtiapine Fumarate 25 MG TABLET PO SCH ×2 (07:42→14:19)
[2021-05-07] MEDS: traZODone 50 MG TABLET PO SCH ×3 (07:42→20:29)
[2021-05-07] MEDS: Metoprolol XL (24 HR) Succ 50 MG TAB.ER.24H PO SCH (07:42)
[2021-05-07] MEDS: Multivit/Ca/Min/Fe/FA 1 TAB TABLET PO SCH (07:42)
[2021-05-07] MEDS: Lactobacillus 1 EACH CAP.SPRINK PO SCH ×2 (07:42→20:29)
[2021-05-07] MEDS: QUEtiapine Fumarate 100 MG TABLET PO SCH (20:29)
[2021-05-07] MEDS: Melatonin 3 MG TABLET PO SCH (20:29)
[2021-05-08 05:11] LABS: Hematocrit 37.5 % (37.5-50.1); Hemoglobin 11.6 g/dL (12.9-16.9); Mean Corpuscular HGB Conc 30.9 g/dL (31.6-35.5); Mean Corpuscular Hemoglobin 24.3 pg (28.0-33.3); Mean Corpuscular Volume 78.5 fL (83.0-100.0); Mean Platelet Volume 9.9 fL (9.4-12.4); Platelet Count 241 K/mcL (140-400); Red Blood Count 4.78 M/mcL (4.19-5.50); Red Cell Distribution Width 20.8 % (11.5-14.5); White Blood Count 7.8 K/mcL (4.3-11.1)
[2021-05-08 05:27] LABS: BUN/Creatinine Ratio 20 (6-26); Blood Urea Nitrogen 21 mg/dL (8-23); Carbon Dioxide 24 mEq/L (23-29); Chloride 105 mEq/L (98-107); Glucose 98 mg/dL (70-105); Magnesium 2.1 mg/dL (1.6-2.6); Osmolality,Calculated 287 (280-300); Phosphorous 3.5 mg/dL (2.7-4.5); Potassium 3.9 mEq/L (3.5-5.1); Sodium 137 mEq/L (136-145); eGFR For African Americans > 60 (> 60); eGFR For Non-African Americans > 60 (> 60)
[2021-05-08] MEDS: *HR* Enoxaparin 40 MG/0.4 ML SYRINGE SQ SCH (06:05)
[2021-05-08] MEDS: Multivit/Ca/Min/Fe/FA 1 TAB TABLET PO SCH (09:33)
[2021-05-08] MEDS: QUEtiapine Fumarate 25 MG TABLET PO SCH ×2 (09:33→15:13)
[2021-05-08] MEDS: Metoprolol XL (24 HR) Succ 50 MG TAB.ER.24H PO SCH (09:34)
[2021-05-08] MEDS: Lactobacillus 1 EACH CAP.SPRINK PO SCH ×2 (09:34→21:27)
[2021-05-08] MEDS: traZODone 50 MG TABLET PO SCH ×3 (09:34→21:27)
[2021-05-08 10:35] LABS: Bilirubin,Urine Negative (Negative); Blood,Urine Trace (Negative); Calcium Oxalate Crystals,Urine Present per hpf; Clarity,Urine Clear (Clear); Color,Urine Yellow (Yellow); Glucose,Urine (UA) Normal (Normal); Ketones,Urine Negative (Negative); Leukocyte Esterase,Urine Trace (Negative); Mucus,Urine Few per lpf (None-Few); Nitrite,Urine Negative (Negative); Protein,Urine Trace mg/dL (Neg-Trace); Specific Gravity,Urine 1.026 (1.010-1.025); Urobilinogen,Urine Normal (Normal)
[2021-05-08] MEDS: QUEtiapine Fumarate 100 MG TABLET PO SCH (21:27)
[2021-05-08] MEDS: Melatonin 3 MG TABLET PO SCH (21:27)
[2021-05-08] MEDS: Haloperidol Lactate 5 MG/ML VIAL IM PRN (22:29)
[2021-05-08] MEDS ORDERED: *HR* LORazepam 2 MG/ML VIAL IM STA (22:50)
[2021-05-09] MEDS: *HR* Enoxaparin 40 MG/0.4 ML SYRINGE SQ SCH (06:30)
[2021-05-09] MEDS: Metoprolol XL (24 HR) Succ 50 MG TAB.ER.24H PO SCH (09:24)
[2021-05-09] MEDS: Lactobacillus 1 EACH CAP.SPRINK PO SCH ×2 (09:24→21:11)
[2021-05-09] MEDS: Multivit/Ca/Min/Fe/FA 1 TAB TABLET PO SCH (09:24)
[2021-05-09] MEDS: QUEtiapine Fumarate 25 MG TABLET PO SCH ×2 (09:24→15:09)
[2021-05-09] MEDS: traZODone 50 MG TABLET PO SCH ×3 (09:30→21:11)
[2021-05-09] MEDS ORDERED: Dextrose Gel 15 GM/37.5 ML TUBE PO PRN ×2 (14:57)
[2021-05-09] MEDS ORDERED: D5% in Water 1,000 ML IVC PRN (14:57)
[2021-05-09] MEDS ORDERED: *HR* Dextrose 50 % in Water (Vial) 50 ML VIAL IVP PRN (14:57)
[2021-05-09] MEDS: Melatonin 3 MG TABLET PO SCH (21:11)
[2021-05-09] MEDS: QUEtiapine Fumarate 100 MG TABLET PO SCH (21:11)
[2021-05-10] MEDS: *HR* Enoxaparin 40 MG/0.4 ML SYRINGE SQ SCH (05:51)
[2021-05-10] MEDS: Multivit/Ca/Min/Fe/FA 1 TAB TABLET PO SCH (09:47)
[2021-05-10] MEDS: traZODone 50 MG TABLET PO SCH ×3 (09:48→19:49)
[2021-05-10] MEDS: Metoprolol XL (24 HR) Succ 50 MG TAB.ER.24H PO SCH (09:48)
[2021-05-10] MEDS: Lactobacillus 1 EACH CAP.SPRINK PO SCH ×2 (09:49→19:51)
[2021-05-10] MEDS: QUEtiapine Fumarate 25 MG TABLET PO SCH ×2 (09:49→15:06)
[2021-05-10] MEDS: QUEtiapine Fumarate 100 MG TABLET PO SCH (19:50)
[2021-05-10] MEDS: Melatonin 3 MG TABLET PO SCH (19:50)
[2021-05-11] MEDS: *HR* Enoxaparin 40 MG/0.4 ML SYRINGE SQ SCH (05:32)
[2021-05-11] MEDS: QUEtiapine Fumarate 25 MG TABLET PO SCH ×2 (10:30→15:01)
[2021-05-11] MEDS: Multivit/Ca/Min/Fe/FA 1 TAB TABLET PO SCH (10:30)
[2021-05-11] MEDS: Metoprolol XL (24 HR) Succ 50 MG TAB.ER.24H PO SCH (10:30)
[2021-05-11] MEDS: Lactobacillus 1 EACH CAP.SPRINK PO SCH ×2 (10:30→20:14)
[2021-05-11] MEDS: traZODone 50 MG TABLET PO SCH ×3 (10:30→20:14)
[2021-05-11] MEDS: Acetaminophen 325 MG TABLET PO PRN (15:01)
[2021-05-11] MEDS: QUEtiapine Fumarate 100 MG TABLET PO SCH (20:14)
[2021-05-11] MEDS: Melatonin 3 MG TABLET PO SCH (20:15)
[2021-05-12] MEDS: *HR* Enoxaparin 40 MG/0.4 ML SYRINGE SQ SCH (05:39)
[2021-05-12] MEDS: QUEtiapine Fumarate 25 MG TABLET PO SCH ×2 (10:01→13:54)
[2021-05-12] MEDS: Multivit/Ca/Min/Fe/FA 1 TAB TABLET PO SCH (10:02)
[2021-05-12] MEDS: Metoprolol XL (24 HR) Succ 50 MG TAB.ER.24H PO SCH (10:02)
[2021-05-12] MEDS: traZODone 50 MG TABLET PO SCH ×3 (10:02→19:42)
[2021-05-12] MEDS: Lactobacillus 1 EACH CAP.SPRINK PO SCH ×2 (10:02→19:42)
[2021-05-12] MEDS: Melatonin 3 MG TABLET PO SCH (19:42)
[2021-05-12] MEDS: QUEtiapine Fumarate 100 MG TABLET PO SCH (19:42)
[2021-05-13] MEDS: *HR* Enoxaparin 40 MG/0.4 ML SYRINGE SQ SCH (05:44)
[2021-05-13] MEDS: Multivit/Ca/Min/Fe/FA 1 TAB TABLET PO SCH (09:09)
[2021-05-13] MEDS: Metoprolol XL (24 HR) Succ 50 MG TAB.ER.24H PO SCH (09:09)
[2021-05-13] MEDS: Lactobacillus 1 EACH CAP.SPRINK PO SCH ×2 (09:09→21:08)
[2021-05-13] MEDS: QUEtiapine Fumarate 25 MG TABLET PO SCH ×2 (09:09→16:25)
[2021-05-13] MEDS: traZODone 50 MG TABLET PO SCH ×3 (09:10→21:06)
[2021-05-13] MEDS ORDERED: Furosemide 20 MG TABLET PO ONE (10:11)
[2021-05-13] MEDS: QUEtiapine Fumarate 100 MG TABLET PO SCH (21:08)
[2021-05-13] MEDS: Melatonin 3 MG TABLET PO SCH (21:08)
[2021-05-14] MEDS: *HR* Enoxaparin 40 MG/0.4 ML SYRINGE SQ SCH (06:09)
[2021-05-14] MEDS: Metoprolol XL (24 HR) Succ 50 MG TAB.ER.24H PO SCH (08:39)
[2021-05-14] MEDS: QUEtiapine Fumarate 25 MG TABLET PO SCH ×2 (08:39→15:07)
[2021-05-14] MEDS: Lactobacillus 1 EACH CAP.SPRINK PO SCH ×2 (08:39→20:48)
[2021-05-14] MEDS: traZODone 50 MG TABLET PO SCH ×3 (08:39→20:48)
[2021-05-14] MEDS: Multivit/Ca/Min/Fe/FA 1 TAB TABLET PO SCH (08:39)
[2021-05-14] MEDS: Melatonin 3 MG TABLET PO SCH (20:47)
[2021-05-14] MEDS: QUEtiapine Fumarate 100 MG TABLET PO SCH (20:48)
[2021-05-15] MEDS: *HR* Enoxaparin 40 MG/0.4 ML SYRINGE SQ SCH (05:47)
[2021-05-15] MEDS: traZODone 50 MG TABLET PO SCH ×3 (09:59→20:53)
[2021-05-15] MEDS: Lactobacillus 1 EACH CAP.SPRINK PO SCH ×2 (09:59→20:52)
[2021-05-15] MEDS: QUEtiapine Fumarate 25 MG TABLET PO SCH ×2 (09:59→15:07)
[2021-05-15] MEDS: Metoprolol XL (24 HR) Succ 50 MG TAB.ER.24H PO SCH (09:59)
[2021-05-15] MEDS: Multivit/Ca/Min/Fe/FA 1 TAB TABLET PO SCH (09:59)
[2021-05-15] MEDS: Melatonin 3 MG TABLET PO SCH (20:52)
[2021-05-15] MEDS: QUEtiapine Fumarate 100 MG TABLET PO SCH (20:53)
[2021-05-16] MEDS: *HR* Enoxaparin 40 MG/0.4 ML SYRINGE SQ SCH (06:15)
[2021-05-16] MEDS: Multivit/Ca/Min/Fe/FA 1 TAB TABLET PO SCH (09:31)
[2021-05-16] MEDS: Lactobacillus 1 EACH CAP.SPRINK PO SCH ×2 (09:31→19:56)
[2021-05-16] MEDS: Metoprolol XL (24 HR) Succ 50 MG TAB.ER.24H PO SCH (09:31)
[2021-05-16] MEDS: traZODone 50 MG TABLET PO SCH ×3 (09:31→19:56)
[2021-05-16] MEDS: QUEtiapine Fumarate 25 MG TABLET PO SCH ×2 (09:32→14:51)
[2021-05-16] MEDS: Melatonin 3 MG TABLET PO SCH (19:55)
[2021-05-16] MEDS: QUEtiapine Fumarate 100 MG TABLET PO SCH (19:56)
[2021-05-17] MEDS: *HR* Enoxaparin 40 MG/0.4 ML SYRINGE SQ SCH ×2 (05:29→05:35)
[2021-05-17] MEDS: Metoprolol XL (24 HR) Succ 50 MG TAB.ER.24H PO SCH (07:34)
[2021-05-17] MEDS: QUEtiapine Fumarate 25 MG TABLET PO SCH ×2 (07:34→15:26)
[2021-05-17] MEDS: Multivit/Ca/Min/Fe/FA 1 TAB TABLET PO SCH (07:34)
[2021-05-17] MEDS: Lactobacillus 1 EACH CAP.SPRINK PO SCH ×2 (07:34→20:33)
[2021-05-17] MEDS: traZODone 50 MG TABLET PO SCH ×3 (07:34→20:33)
[2021-05-17] MEDS: Melatonin 3 MG TABLET PO SCH (20:33)
[2021-05-17] MEDS: QUEtiapine Fumarate 100 MG TABLET PO SCH (20:33)
[2021-05-18] MEDS: QUEtiapine Fumarate 25 MG TABLET PO SCH ×2 (11:09→17:01)
[2021-05-18] MEDS: Lactobacillus 1 EACH CAP.SPRINK PO SCH ×2 (11:09→21:32)
[2021-05-18] MEDS: Metoprolol XL (24 HR) Succ 50 MG TAB.ER.24H PO SCH (11:09)
[2021-05-18] MEDS: traZODone 50 MG TABLET PO SCH ×3 (11:09→21:32)
[2021-05-18] MEDS: Multivit/Ca/Min/Fe/FA 1 TAB TABLET PO SCH (11:09)
[2021-05-18] MEDS: Melatonin 3 MG TABLET PO SCH (21:32)
[2021-05-18] MEDS: QUEtiapine Fumarate 100 MG TABLET PO SCH (21:32)
[2021-05-19] MEDS: QUEtiapine Fumarate 25 MG TABLET PO SCH ×2 (10:35→17:49)
[2021-05-19] MEDS: Lactobacillus 1 EACH CAP.SPRINK PO SCH ×2 (10:35→22:32)
[2021-05-19] MEDS: Metoprolol XL (24 HR) Succ 50 MG TAB.ER.24H PO SCH (10:36)
[2021-05-19] MEDS: Multivit/Ca/Min/Fe/FA 1 TAB TABLET PO SCH (10:36)
[2021-05-19] MEDS: traZODone 50 MG TABLET PO SCH ×3 (10:36→22:32)
[2021-05-19] MEDS: QUEtiapine Fumarate 100 MG TABLET PO SCH (22:32)
[2021-05-19] MEDS: Melatonin 3 MG TABLET PO SCH (22:32)
[2021-05-20] MEDS: Lactobacillus 1 EACH CAP.SPRINK PO SCH ×2 (09:33→20:26)
[2021-05-20] MEDS: QUEtiapine Fumarate 25 MG TABLET PO SCH ×2 (09:33→16:59)
[2021-05-20] MEDS: traZODone 50 MG TABLET PO SCH ×3 (09:33→20:26)
[2021-05-20] MEDS: Multivit/Ca/Min/Fe/FA 1 TAB TABLET PO SCH (09:33)
[2021-05-20] MEDS: Metoprolol XL (24 HR) Succ 50 MG TAB.ER.24H PO SCH (09:33)
[2021-05-20] MEDS: Melatonin 3 MG TABLET PO SCH (20:26)
[2021-05-20] MEDS: QUEtiapine Fumarate 100 MG TABLET PO SCH (20:26)
[2021-05-21 02:17] LABS: Basophils # 0.1 K/mcL (0.0-0.2); Basophils % 0.8 %; Eosinophils # 0.4 K/mcL (0.0-0.6); Eosinophils % 4.4 %; Hematocrit 35.2 % (37.5-50.1); Immature Granulocytes % 0.3 % (0-4); Lymphocytes # 2.8 K/mcL (0.6-4.6); Lymphocytes % 30.3 %; Mean Corpuscular HGB Conc 31.3 g/dL (31.6-35.5); Mean Corpuscular Hemoglobin 24.6 pg (28.0-33.3); Mean Corpuscular Volume 78.7 fL (83.0-100.0); Mean Platelet Volume 10.3 fL (9.4-12.4); Monocytes % 10.9 %; Neutrophils # 4.9 K/mcL (1.6-8.9); Platelet Count 236 K/mcL (140-400); Red Blood Count 4.47 M/mcL (4.19-5.50); Red Cell Distribution Width 20.3 % (11.5-14.5); Segmented Neutrophils % 53.3 %; White Blood Count 9.3 K/mcL (4.3-11.1)
[2021-05-21 02:37] LABS: BUN/Creatinine Ratio 25 (6-26); Blood Urea Nitrogen 29 mg/dL (8-23); Calcium 8.9 mg/dL (8.6-10.3); Carbon Dioxide 25 mEq/L (23-29); Chloride 106 mEq/L (98-107); Glucose 116 mg/dL (70-105); Osmolality,Calculated 295 (280-300); Potassium 4.1 mEq/L (3.5-5.1); Sodium 139 mEq/L (136-145); eGFR For African Americans > 60 (> 60); eGFR For Non-African Americans > 60 (> 60)
[2021-05-21] MEDS: traZODone 50 MG TABLET PO SCH ×3 (10:29→20:33)
[2021-05-21] MEDS: Multivit/Ca/Min/Fe/FA 1 TAB TABLET PO SCH (10:29)
[2021-05-21] MEDS: QUEtiapine Fumarate 25 MG TABLET PO SCH ×2 (10:29→15:54)
[2021-05-21] MEDS: Metoprolol XL (24 HR) Succ 50 MG TAB.ER.24H PO SCH (10:29)
[2021-05-21] MEDS: Lactobacillus 1 EACH CAP.SPRINK PO SCH ×2 (10:29→20:33)
[2021-05-21] MEDS ORDERED: E-Z-PAQUE (BARIUM SULF) SUSP 1 BOTTLE PO ONE (12:04)
[2021-05-21] MEDS ORDERED: E-Z-HD (BARIUM SULF) SUSPENSION PO ONE (12:04)
[2021-05-21] MEDS: QUEtiapine Fumarate 100 MG TABLET PO SCH (20:33)
[2021-05-21] MEDS: Melatonin 3 MG TABLET PO SCH (20:33)
[2021-05-22] MEDS: Metoprolol XL (24 HR) Succ 50 MG TAB.ER.24H PO SCH (09:53)
[2021-05-22] MEDS: Lactobacillus 1 EACH CAP.SPRINK PO SCH ×2 (09:53→21:01)
[2021-05-22] MEDS: QUEtiapine Fumarate 25 MG TABLET PO SCH ×2 (09:54→14:58)
[2021-05-22] MEDS: Multivit/Ca/Min/Fe/FA 1 TAB TABLET PO SCH (09:54)
[2021-05-22] MEDS: traZODone 50 MG TABLET PO SCH ×3 (09:55→21:02)
[2021-05-22] MEDS: Loratadine 10 MG TABLET PO SCH (16:01)
[2021-05-22] MEDS: QUEtiapine Fumarate 100 MG TABLET PO SCH (21:01)
[2021-05-22] MEDS: Melatonin 3 MG TABLET PO SCH (21:02)
[2021-05-23] MEDS: Loratadine 10 MG TABLET PO SCH (08:56)
[2021-05-23] MEDS: Multivit/Ca/Min/Fe/FA 1 TAB TABLET PO SCH (08:56)
[2021-05-23] MEDS: traZODone 50 MG TABLET PO SCH ×3 (08:56→22:04)
[2021-05-23] MEDS: Lactobacillus 1 EACH CAP.SPRINK PO SCH ×2 (08:56→22:03)
[2021-05-23] MEDS: Metoprolol XL (24 HR) Succ 50 MG TAB.ER.24H PO SCH (08:56)
[2021-05-23] MEDS: QUEtiapine Fumarate 25 MG TABLET PO SCH ×2 (08:56→15:49)
[2021-05-23] MEDS: Melatonin 3 MG TABLET PO SCH (22:03)
[2021-05-23] MEDS: QUEtiapine Fumarate 100 MG TABLET PO SCH (22:04)
[2021-05-24] MEDS: Metoprolol XL (24 HR) Succ 50 MG TAB.ER.24H PO SCH (09:45)
[2021-05-24] MEDS: traZODone 50 MG TABLET PO SCH ×3 (09:45→20:47)
[2021-05-24] MEDS: Lactobacillus 1 EACH CAP.SPRINK PO SCH ×2 (09:45→20:47)
[2021-05-24] MEDS: Loratadine 10 MG TABLET PO SCH (09:45)
[2021-05-24] MEDS: QUEtiapine Fumarate 25 MG TABLET PO SCH ×2 (09:45→16:45)
[2021-05-24] MEDS: Multivit/Ca/Min/Fe/FA 1 TAB TABLET PO SCH (09:45)
[2021-05-24] MEDS: Melatonin 3 MG TABLET PO SCH (20:47)
[2021-05-24] MEDS: QUEtiapine Fumarate 100 MG TABLET PO SCH (20:47)
[2021-05-25] MEDS: Lactobacillus 1 EACH CAP.SPRINK PO SCH ×2 (10:51→20:15)
[2021-05-25] MEDS: QUEtiapine Fumarate 25 MG TABLET PO SCH ×2 (10:52→16:42)
[2021-05-25] MEDS: Multivit/Ca/Min/Fe/FA 1 TAB TABLET PO SCH (10:52)
[2021-05-25] MEDS: Metoprolol XL (24 HR) Succ 50 MG TAB.ER.24H PO SCH (10:52)
[2021-05-25] MEDS: traZODone 50 MG TABLET PO SCH ×3 (10:52→20:15)
[2021-05-25] MEDS: Loratadine 10 MG TABLET PO SCH (10:52)
[2021-05-25] MEDS: QUEtiapine Fumarate 100 MG TABLET PO SCH (20:15)
[2021-05-25] MEDS: Melatonin 3 MG TABLET PO SCH (20:16)
[2021-05-26] MEDS: Lactobacillus 1 EACH CAP.SPRINK PO SCH ×2 (12:27→20:32)
[2021-05-26] MEDS: QUEtiapine Fumarate 25 MG TABLET PO SCH ×2 (12:27→16:50)
[2021-05-26] MEDS: Metoprolol XL (24 HR) Succ 50 MG TAB.ER.24H PO SCH (12:27)
[2021-05-26] MEDS: Multivit/Ca/Min/Fe/FA 1 TAB TABLET PO SCH (12:27)
[2021-05-26] MEDS: traZODone 50 MG TABLET PO SCH ×2 (12:28→16:50)
[2021-05-26] MEDS: Loratadine 10 MG TABLET PO SCH (12:28)
[2021-05-26] MEDS: Melatonin 3 MG TABLET PO SCH (20:32)
[2021-05-26] MEDS: QUEtiapine Fumarate 100 MG TABLET PO SCH (20:32)
[2021-05-27] MEDS: Loratadine 10 MG TABLET PO SCH (08:59)
[2021-05-27] MEDS: Lactobacillus 1 EACH CAP.SPRINK PO SCH ×2 (08:59→20:53)
[2021-05-27] MEDS: Metoprolol XL (24 HR) Succ 50 MG TAB.ER.24H PO SCH (08:59)
[2021-05-27] MEDS: QUEtiapine Fumarate 25 MG TABLET PO SCH ×2 (08:59→15:16)
[2021-05-27] MEDS: Multivit/Ca/Min/Fe/FA 1 TAB TABLET PO SCH (08:59)
[2021-05-27] MEDS: Melatonin 3 MG TABLET PO SCH (20:53)
[2021-05-28] MEDS: QUEtiapine Fumarate 25 MG TABLET PO SCH ×2 (07:11→16:16)
[2021-05-28] MEDS: Loratadine 10 MG TABLET PO SCH (07:11)
[2021-05-28] MEDS: Metoprolol XL (24 HR) Succ 50 MG TAB.ER.24H PO SCH (07:11)
[2021-05-28] MEDS: Multivit/Ca/Min/Fe/FA 1 TAB TABLET PO SCH (07:11)
[2021-05-28] MEDS: Lactobacillus 1 EACH CAP.SPRINK PO SCH ×2 (07:12→20:11)
[2021-05-28] MEDS: traZODone 50 MG TABLET PO SCH ×3 (12:14→20:11)
[2021-05-28] MEDS: Melatonin 3 MG TABLET PO SCH (20:11)
[2021-05-28] MEDS: QUEtiapine Fumarate 100 MG TABLET PO SCH (20:12)
[2021-05-28] MEDS ORDERED: traZODone 50 MG TABLET PO SCH (21:00)
[2021-05-29] MEDS: Loratadine 10 MG TABLET PO SCH (10:44)
[2021-05-29] MEDS: QUEtiapine Fumarate 25 MG TABLET PO SCH ×2 (10:45→15:34)
[2021-05-29] MEDS: Lactobacillus 1 EACH CAP.SPRINK PO SCH ×2 (10:45→21:01)
[2021-05-29] MEDS: Metoprolol XL (24 HR) Succ 50 MG TAB.ER.24H PO SCH (10:45)
[2021-05-29] MEDS: traZODone 50 MG TABLET PO SCH ×3 (10:45→21:01)
[2021-05-29] MEDS: Multivit/Ca/Min/Fe/FA 1 TAB TABLET PO SCH (10:45)
[2021-05-29] MEDS: Acetaminophen 325 MG TABLET PO PRN (15:34)
[2021-05-29] MEDS: QUEtiapine Fumarate 100 MG TABLET PO SCH (21:01)
[2021-05-30] MEDS: Lactobacillus 1 EACH CAP.SPRINK PO SCH ×2 (10:31→20:32)
[2021-05-30] MEDS: traZODone 50 MG TABLET PO SCH ×3 (10:31→20:32)
[2021-05-30] MEDS: Metoprolol XL (24 HR) Succ 50 MG TAB.ER.24H PO SCH (10:31)
[2021-05-30] MEDS: QUEtiapine Fumarate 25 MG TABLET PO SCH ×2 (10:31→15:04)
[2021-05-30] MEDS: Loratadine 10 MG TABLET PO SCH (10:31)
[2021-05-30] MEDS: Multivit/Ca/Min/Fe/FA 1 TAB TABLET PO SCH (10:31)
[2021-05-30] MEDS: Acetaminophen 325 MG TABLET PO PRN (20:31)
[2021-05-30] MEDS: QUEtiapine Fumarate 100 MG TABLET PO SCH (20:31)
[2021-05-31] MEDS: Lactobacillus 1 EACH CAP.SPRINK PO SCH ×2 (09:28→20:11)
[2021-05-31] MEDS: Metoprolol XL (24 HR) Succ 50 MG TAB.ER.24H PO SCH (09:28)
[2021-05-31] MEDS: traZODone 50 MG TABLET PO SCH ×3 (09:28→20:11)
[2021-05-31] MEDS: Multivit/Ca/Min/Fe/FA 1 TAB TABLET PO SCH (09:28)
[2021-05-31] MEDS: Loratadine 10 MG TABLET PO SCH (09:28)
[2021-05-31] MEDS: QUEtiapine Fumarate 25 MG TABLET PO SCH ×2 (09:28→14:20)
[2021-05-31] MEDS: QUEtiapine Fumarate 100 MG TABLET PO SCH (20:11)
[2021-05-31] MEDS: Melatonin 3 MG TABLET PO SCH (20:11)
[2021-06-01] MEDS: Gabapentin 300 MG CAPSULE PO SCH ×3 (12:11→20:31)
[2021-06-01] MEDS: Metoprolol XL (24 HR) Succ 50 MG TAB.ER.24H PO SCH (12:16)
[2021-06-01] MEDS: Multivit/Ca/Min/Fe/FA 1 TAB TABLET PO SCH (12:17)
[2021-06-01] MEDS: Loratadine 10 MG TABLET PO SCH (12:17)
[2021-06-01] MEDS: traZODone 50 MG TABLET PO SCH ×3 (12:17→20:32)
[2021-06-01] MEDS: Lactobacillus 1 EACH CAP.SPRINK PO SCH ×2 (12:17→20:32)
[2021-06-01] MEDS: QUEtiapine Fumarate 25 MG TABLET PO SCH ×2 (12:20→16:31)
[2021-06-01] MEDS: Melatonin 3 MG TABLET PO SCH (20:32)
[2021-06-01] MEDS: QUEtiapine Fumarate 100 MG TABLET PO SCH (20:32)
[2021-06-02] MEDS: QUEtiapine Fumarate 25 MG TABLET PO SCH ×2 (11:41→15:27)
[2021-06-02] MEDS: Multivit/Ca/Min/Fe/FA 1 TAB TABLET PO SCH (11:41)
[2021-06-02] MEDS: Metoprolol XL (24 HR) Succ 50 MG TAB.ER.24H PO SCH (11:41)
[2021-06-02] MEDS: traZODone 50 MG TABLET PO SCH ×3 (11:41→22:05)
[2021-06-02] MEDS: Gabapentin 300 MG CAPSULE PO SCH (11:41)
[2021-06-02] MEDS: Lactobacillus 1 EACH CAP.SPRINK PO SCH ×2 (11:41→22:05)
[2021-06-02] MEDS: Loratadine 10 MG TABLET PO SCH (11:41)
[2021-06-02] MEDS: Melatonin 3 MG TABLET PO SCH (22:05)
[2021-06-02] MEDS: QUEtiapine Fumarate 100 MG TABLET PO SCH (22:06)
[2021-06-03] MEDS: Multivit/Ca/Min/Fe/FA 1 TAB TABLET PO SCH (09:36)
[2021-06-03] MEDS: Acetaminophen 325 MG TABLET PO PRN (09:37)
[2021-06-03] MEDS: QUEtiapine Fumarate 25 MG TABLET PO SCH ×2 (09:38→15:12)
[2021-06-03] MEDS: Gabapentin 300 MG CAPSULE PO SCH (09:38)
[2021-06-03] MEDS: Loratadine 10 MG TABLET PO SCH (09:38)
[2021-06-03] MEDS: traZODone 50 MG TABLET PO SCH ×3 (09:38→21:21)
[2021-06-03] MEDS: Lactobacillus 1 EACH CAP.SPRINK PO SCH ×2 (09:38→21:21)
[2021-06-03] MEDS: Metoprolol XL (24 HR) Succ 50 MG TAB.ER.24H PO SCH (09:39)
[2021-06-03] MEDS: Melatonin 3 MG TABLET PO SCH (21:21)
[2021-06-03] MEDS: QUEtiapine Fumarate 100 MG TABLET PO SCH (21:21)
[2021-06-04] MEDS: Multivit/Ca/Min/Fe/FA 1 TAB TABLET PO SCH (09:44)
[2021-06-04] MEDS: QUEtiapine Fumarate 25 MG TABLET PO SCH ×2 (09:45→15:35)
[2021-06-04] MEDS: Lactobacillus 1 EACH CAP.SPRINK PO SCH ×2 (09:45→22:52)
[2021-06-04] MEDS: traZODone 50 MG TABLET PO SCH ×2 (09:45→15:35)
[2021-06-04] MEDS: Gabapentin 300 MG CAPSULE PO SCH (09:45)
[2021-06-04] MEDS: Metoprolol XL (24 HR) Succ 50 MG TAB.ER.24H PO SCH (09:45)
[2021-06-04] MEDS: Loratadine 10 MG TABLET PO SCH (09:45)
[2021-06-04] MEDS: Melatonin 3 MG TABLET PO SCH (22:52)
[2021-06-04] MEDS: Acetaminophen 325 MG TABLET PO PRN (22:53)
[2021-06-04] MEDS: QUEtiapine Fumarate 100 MG TABLET PO SCH (22:53)
[2021-06-05] MEDS: traZODone 50 MG TABLET PO SCH ×4 (07:38→20:47)
[2021-06-05] MEDS: Gabapentin 300 MG CAPSULE PO SCH (09:33)
[2021-06-05] MEDS: Lactobacillus 1 EACH CAP.SPRINK PO SCH ×2 (09:33→20:47)
[2021-06-05] MEDS: Loratadine 10 MG TABLET PO SCH (09:34)
[2021-06-05] MEDS: QUEtiapine Fumarate 25 MG TABLET PO SCH ×2 (09:34→14:46)
[2021-06-05] MEDS: Multivit/Ca/Min/Fe/FA 1 TAB TABLET PO SCH (09:34)
[2021-06-05] MEDS: Metoprolol XL (24 HR) Succ 50 MG TAB.ER.24H PO SCH (09:34)
[2021-06-05] MEDS: QUEtiapine Fumarate 100 MG TABLET PO SCH (20:47)
[2021-06-05] MEDS: Melatonin 3 MG TABLET PO SCH (20:47)
[2021-06-06] MEDS: traZODone 50 MG TABLET PO SCH ×3 (10:08→20:10)
[2021-06-06] MEDS: Loratadine 10 MG TABLET PO SCH (10:08)
[2021-06-06] MEDS: Metoprolol XL (24 HR) Succ 50 MG TAB.ER.24H PO SCH (10:08)
[2021-06-06] MEDS: QUEtiapine Fumarate 25 MG TABLET PO SCH ×2 (10:08→15:16)
[2021-06-06] MEDS: Gabapentin 300 MG CAPSULE PO SCH (10:08)
[2021-06-06] MEDS: Lactobacillus 1 EACH CAP.SPRINK PO SCH ×2 (10:08→20:10)
[2021-06-06] MEDS: Multivit/Ca/Min/Fe/FA 1 TAB TABLET PO SCH (10:08)
[2021-06-06] MEDS: Melatonin 3 MG TABLET PO SCH (20:10)
[2021-06-06] MEDS: QUEtiapine Fumarate 100 MG TABLET PO SCH (20:10)
[2021-06-07] MEDS: Metoprolol XL (24 HR) Succ 50 MG TAB.ER.24H PO SCH (09:59)
[2021-06-07] MEDS: Gabapentin 300 MG CAPSULE PO SCH (09:59)
[2021-06-07] MEDS: QUEtiapine Fumarate 25 MG TABLET PO SCH ×2 (09:59→16:23)
[2021-06-07] MEDS: Loratadine 10 MG TABLET PO SCH (09:59)
[2021-06-07] MEDS: traZODone 50 MG TABLET PO SCH ×3 (10:00→20:48)
[2021-06-07] MEDS: Multivit/Ca/Min/Fe/FA 1 TAB TABLET PO SCH (10:00)
[2021-06-07] MEDS: Lactobacillus 1 EACH CAP.SPRINK PO SCH ×2 (10:00→20:48)
[2021-06-07] MEDS: Melatonin 3 MG TABLET PO SCH (20:48)
[2021-06-07] MEDS: QUEtiapine Fumarate 100 MG TABLET PO SCH (20:48)
[2021-06-08] MEDS: Lactobacillus 1 EACH CAP.SPRINK PO SCH ×2 (07:58→20:17)
[2021-06-08] MEDS: Metoprolol XL (24 HR) Succ 50 MG TAB.ER.24H PO SCH (07:59)
[2021-06-08] MEDS: Multivit/Ca/Min/Fe/FA 1 TAB TABLET PO SCH (07:59)
[2021-06-08] MEDS: Gabapentin 300 MG CAPSULE PO SCH (07:59)
[2021-06-08] MEDS: QUEtiapine Fumarate 25 MG TABLET PO SCH ×2 (07:59→13:50)
[2021-06-08] MEDS: traZODone 50 MG TABLET PO SCH ×3 (07:59→20:17)
[2021-06-08] MEDS: Loratadine 10 MG TABLET PO SCH (07:59)
[2021-06-08] MEDS: QUEtiapine Fumarate 100 MG TABLET PO SCH (20:16)
[2021-06-08] MEDS: Melatonin 3 MG TABLET PO SCH (20:17)
[2021-06-09] MEDS: traZODone 50 MG TABLET PO SCH ×3 (07:44→21:10)
[2021-06-09] MEDS: Multivit/Ca/Min/Fe/FA 1 TAB TABLET PO SCH (07:44)
[2021-06-09] MEDS: Gabapentin 300 MG CAPSULE PO SCH (07:45)
[2021-06-09] MEDS: Metoprolol XL (24 HR) Succ 50 MG TAB.ER.24H PO SCH (07:45)
[2021-06-09] MEDS: Loratadine 10 MG TABLET PO SCH (07:45)
[2021-06-09] MEDS: QUEtiapine Fumarate 25 MG TABLET PO SCH ×2 (07:45→14:30)
[2021-06-09] MEDS: Lactobacillus 1 EACH CAP.SPRINK PO SCH ×2 (07:45→21:10)
[2021-06-09] MEDS: Melatonin 3 MG TABLET PO SCH (21:10)
[2021-06-09] MEDS: QUEtiapine Fumarate 100 MG TABLET PO SCH (21:10)
[2021-06-10] MEDS: Multivit/Ca/Min/Fe/FA 1 TAB TABLET PO SCH (07:25)
[2021-06-10] MEDS: Gabapentin 300 MG CAPSULE PO SCH (07:25)
[2021-06-10] MEDS: Metoprolol XL (24 HR) Succ 50 MG TAB.ER.24H PO SCH (07:25)
[2021-06-10] MEDS: Loratadine 10 MG TABLET PO SCH (07:25)
[2021-06-10] MEDS: Lactobacillus 1 EACH CAP.SPRINK PO SCH ×2 (07:25→20:36)
[2021-06-10] MEDS: QUEtiapine Fumarate 25 MG TABLET PO SCH ×2 (07:25→14:46)
[2021-06-10] MEDS: traZODone 50 MG TABLET PO SCH ×3 (07:25→20:36)
[2021-06-10] MEDS: QUEtiapine Fumarate 100 MG TABLET PO SCH (20:36)
[2021-06-10] MEDS: Melatonin 3 MG TABLET PO SCH (20:37)
[2021-06-11] MEDS: Lactobacillus 1 EACH CAP.SPRINK PO SCH ×2 (09:16→20:52)
[2021-06-11] MEDS: traZODone 50 MG TABLET PO SCH ×3 (09:16→20:52)
[2021-06-11] MEDS: Gabapentin 300 MG CAPSULE PO SCH (09:16)
[2021-06-11] MEDS: Loratadine 10 MG TABLET PO SCH (09:16)
[2021-06-11] MEDS: Multivit/Ca/Min/Fe/FA 1 TAB TABLET PO SCH (09:17)
[2021-06-11] MEDS: QUEtiapine Fumarate 25 MG TABLET PO SCH ×2 (09:17→16:35)
[2021-06-11] MEDS: Metoprolol XL (24 HR) Succ 50 MG TAB.ER.24H PO SCH (09:17)
[2021-06-11] MEDS: Melatonin 3 MG TABLET PO SCH (20:52)
[2021-06-11] MEDS: QUEtiapine Fumarate 100 MG TABLET PO SCH (21:11)
[2021-06-12] MEDS ORDERED: Haloperidol Lactate 5 MG/ML VIAL IM ONE (02:46)
[2021-06-12] MEDS: QUEtiapine Fumarate 25 MG TABLET PO SCH ×2 (10:17→15:28)
[2021-06-12] MEDS: Gabapentin 300 MG CAPSULE PO SCH (10:17)
[2021-06-12] MEDS: Loratadine 10 MG TABLET PO SCH (10:18)
[2021-06-12] MEDS: Metoprolol XL (24 HR) Succ 50 MG TAB.ER.24H PO SCH (10:18)
[2021-06-12] MEDS: Lactobacillus 1 EACH CAP.SPRINK PO SCH ×2 (10:18→20:39)
[2021-06-12] MEDS: Multivit/Ca/Min/Fe/FA 1 TAB TABLET PO SCH (10:18)
[2021-06-12] MEDS: traZODone 50 MG TABLET PO SCH ×3 (10:18→20:40)
[2021-06-12] MEDS: QUEtiapine Fumarate 100 MG TABLET PO SCH (20:39)
[2021-06-12] MEDS: Melatonin 3 MG TABLET PO SCH (20:39)
[2021-06-13] MEDS: Multivit/Ca/Min/Fe/FA 1 TAB TABLET PO SCH (11:35)
[2021-06-13] MEDS: Metoprolol XL (24 HR) Succ 50 MG TAB.ER.24H PO SCH (11:35)
[2021-06-13] MEDS: QUEtiapine Fumarate 25 MG TABLET PO SCH ×2 (11:35→16:01)
[2021-06-13] MEDS: Loratadine 10 MG TABLET PO SCH (11:35)
[2021-06-13] MEDS: Gabapentin 300 MG CAPSULE PO SCH (11:36)
[2021-06-13] MEDS: traZODone 50 MG TABLET PO SCH ×3 (11:36→21:36)
[2021-06-13] MEDS: Lactobacillus 1 EACH CAP.SPRINK PO SCH ×2 (11:36→21:38)
[2021-06-13] MEDS: Acetaminophen 325 MG TABLET PO PRN (13:34)
[2021-06-13] MEDS: Preparation H Ointment 57 GM TUBE TP SCH ×2 (16:01→21:54)
[2021-06-13] MEDS: QUEtiapine Fumarate 100 MG TABLET PO SCH (21:36)
[2021-06-13] MEDS: Melatonin 3 MG TABLET PO SCH (21:38)
[2021-06-14] MEDS: Gabapentin 300 MG CAPSULE PO SCH (10:06)
[2021-06-14] MEDS: Acetaminophen 325 MG TABLET PO PRN (10:06)
[2021-06-14] MEDS: Multivit/Ca/Min/Fe/FA 1 TAB TABLET PO SCH (10:06)
[2021-06-14] MEDS: QUEtiapine Fumarate 25 MG TABLET PO SCH ×2 (10:07→16:37)
[2021-06-14] MEDS: Lactobacillus 1 EACH CAP.SPRINK PO SCH ×2 (10:07→21:30)
[2021-06-14] MEDS: traZODone 50 MG TABLET PO SCH ×3 (10:07→21:30)
[2021-06-14] MEDS: Loratadine 10 MG TABLET PO SCH (10:07)
[2021-06-14] MEDS: Metoprolol XL (24 HR) Succ 50 MG TAB.ER.24H PO SCH (10:07)
[2021-06-14] MEDS: Preparation H Ointment 57 GM TUBE TP SCH ×3 (10:27→21:30)
[2021-06-14] MEDS: QUEtiapine Fumarate 100 MG TABLET PO SCH (21:30)
[2021-06-14] MEDS: Melatonin 3 MG TABLET PO SCH (21:30)
[2021-06-15] MEDS: Metoprolol XL (24 HR) Succ 50 MG TAB.ER.24H PO SCH (09:15)
[2021-06-15] MEDS: Preparation H Ointment 57 GM TUBE TP SCH ×3 (09:15→20:32)
[2021-06-15] MEDS: Loratadine 10 MG TABLET PO SCH (09:15)
[2021-06-15] MEDS: Multivit/Ca/Min/Fe/FA 1 TAB TABLET PO SCH (09:15)
[2021-06-15] MEDS: traZODone 50 MG TABLET PO SCH ×3 (09:15→20:28)
[2021-06-15] MEDS: QUEtiapine Fumarate 25 MG TABLET PO SCH ×2 (09:15→16:27)
[2021-06-15] MEDS: Gabapentin 300 MG CAPSULE PO SCH (09:15)
[2021-06-15] MEDS: Lactobacillus 1 EACH CAP.SPRINK PO SCH ×2 (09:15→20:28)
[2021-06-15] MEDS: Melatonin 3 MG TABLET PO SCH (20:28)
[2021-06-15] MEDS: QUEtiapine Fumarate 100 MG TABLET PO SCH (20:28)
[2021-06-16] MEDS: Loratadine 10 MG TABLET PO SCH (11:22)
[2021-06-16] MEDS: Lactobacillus 1 EACH CAP.SPRINK PO SCH ×2 (11:22→20:52)
[2021-06-16] MEDS: traZODone 50 MG TABLET PO SCH ×3 (11:22→20:52)
[2021-06-16] MEDS: Preparation H Ointment 57 GM TUBE TP SCH ×3 (11:23→20:58)
[2021-06-16] MEDS: QUEtiapine Fumarate 25 MG TABLET PO SCH ×2 (11:23→16:59)
[2021-06-16] MEDS: Metoprolol XL (24 HR) Succ 50 MG TAB.ER.24H PO SCH (11:23)
[2021-06-16] MEDS: Gabapentin 300 MG CAPSULE PO SCH (11:23)
[2021-06-16] MEDS: Multivit/Ca/Min/Fe/FA 1 TAB TABLET PO SCH (11:23)
[2021-06-16] MEDS: Melatonin 3 MG TABLET PO SCH (20:52)
[2021-06-16] MEDS: QUEtiapine Fumarate 100 MG TABLET PO SCH (20:52)
[2021-06-17] MEDS: Metoprolol XL (24 HR) Succ 50 MG TAB.ER.24H PO SCH (11:04)
[2021-06-17] MEDS: Gabapentin 300 MG CAPSULE PO SCH (11:04)
[2021-06-17] MEDS: Loratadine 10 MG TABLET PO SCH (11:04)
[2021-06-17] MEDS: Multivit/Ca/Min/Fe/FA 1 TAB TABLET PO SCH (11:04)
[2021-06-17] MEDS: Lactobacillus 1 EACH CAP.SPRINK PO SCH ×2 (11:04→20:53)
[2021-06-17] MEDS: Preparation H Ointment 57 GM TUBE TP SCH ×3 (11:05→21:01)
[2021-06-17] MEDS: traZODone 50 MG TABLET PO SCH ×3 (11:05→20:53)
[2021-06-17] MEDS: QUEtiapine Fumarate 25 MG TABLET PO SCH ×2 (11:05→15:33)
[2021-06-17] MEDS: Melatonin 3 MG TABLET PO SCH (20:53)
[2021-06-17] MEDS: QUEtiapine Fumarate 100 MG TABLET PO SCH (20:54)
[2021-06-18] MEDS: Lactobacillus 1 EACH CAP.SPRINK PO SCH ×2 (10:12→21:04)
[2021-06-18] MEDS: Preparation H Ointment 57 GM TUBE TP SCH ×3 (10:12→21:05)
[2021-06-18] MEDS: traZODone 50 MG TABLET PO SCH ×3 (10:12→21:04)
[2021-06-18] MEDS: QUEtiapine Fumarate 25 MG TABLET PO SCH ×2 (10:12→15:43)
[2021-06-18] MEDS: Multivit/Ca/Min/Fe/FA 1 TAB TABLET PO SCH (10:12)
[2021-06-18] MEDS: Metoprolol XL (24 HR) Succ 50 MG TAB.ER.24H PO SCH (10:12)
[2021-06-18] MEDS: Loratadine 10 MG TABLET PO SCH (10:12)
[2021-06-18] MEDS: Gabapentin 300 MG CAPSULE PO SCH (10:12)
[2021-06-18] MEDS: Acetaminophen 325 MG TABLET PO PRN (15:43)
[2021-06-18] MEDS: QUEtiapine Fumarate 100 MG TABLET PO SCH (21:04)
[2021-06-18] MEDS: Melatonin 3 MG TABLET PO SCH (21:06)
[2021-06-19] MEDS: Lactobacillus 1 EACH CAP.SPRINK PO SCH ×2 (09:01→21:29)
[2021-06-19] MEDS: QUEtiapine Fumarate 25 MG TABLET PO SCH ×2 (09:01→16:43)
[2021-06-19] MEDS: traZODone 50 MG TABLET PO SCH ×3 (09:01→21:29)
[2021-06-19] MEDS: Loratadine 10 MG TABLET PO SCH (09:01)
[2021-06-19] MEDS: Gabapentin 300 MG CAPSULE PO SCH (09:01)
[2021-06-19] MEDS: Multivit/Ca/Min/Fe/FA 1 TAB TABLET PO SCH (09:01)
[2021-06-19] MEDS: Metoprolol XL (24 HR) Succ 50 MG TAB.ER.24H PO SCH (09:01)
[2021-06-19] MEDS: Preparation H Ointment 57 GM TUBE TP SCH ×3 (09:08→21:29)
[2021-06-19] MEDS: Acetaminophen 325 MG TABLET PO PRN (16:53)
[2021-06-19] MEDS: Melatonin 3 MG TABLET PO SCH (21:29)
[2021-06-19] MEDS: QUEtiapine Fumarate 100 MG TABLET PO SCH (21:29)
[2021-06-20] MEDS: Multivit/Ca/Min/Fe/FA 1 TAB TABLET PO SCH (11:57)
[2021-06-20] MEDS: Gabapentin 300 MG CAPSULE PO SCH (11:57)
[2021-06-20] MEDS: Lactobacillus 1 EACH CAP.SPRINK PO SCH ×2 (11:57→21:18)
[2021-06-20] MEDS: traZODone 50 MG TABLET PO SCH ×3 (11:57→21:12)
[2021-06-20] MEDS: Metoprolol XL (24 HR) Succ 50 MG TAB.ER.24H PO SCH (11:57)
[2021-06-20] MEDS: QUEtiapine Fumarate 25 MG TABLET PO SCH ×2 (11:57→16:26)
[2021-06-20] MEDS: Loratadine 10 MG TABLET PO SCH (11:58)
[2021-06-20] MEDS: Preparation H Ointment 57 GM TUBE TP SCH ×3 (12:03→21:19)
[2021-06-20] MEDS: Acetaminophen 325 MG TABLET PO PRN (21:16)
[2021-06-20] MEDS: Melatonin 3 MG TABLET PO SCH (21:17)
[2021-06-20] MEDS: QUEtiapine Fumarate 100 MG TABLET PO SCH (21:18)
[2021-06-21] MEDS: Lactobacillus 1 EACH CAP.SPRINK PO SCH ×2 (10:51→21:20)
[2021-06-21] MEDS: Loratadine 10 MG TABLET PO SCH (10:51)
[2021-06-21] MEDS: Metoprolol XL (24 HR) Succ 50 MG TAB.ER.24H PO SCH (10:51)
[2021-06-21] MEDS: Multivit/Ca/Min/Fe/FA 1 TAB TABLET PO SCH (10:51)
[2021-06-21] MEDS: Gabapentin 300 MG CAPSULE PO SCH (10:51)
[2021-06-21] MEDS: QUEtiapine Fumarate 25 MG TABLET PO SCH ×2 (10:51→15:42)
[2021-06-21] MEDS: traZODone 50 MG TABLET PO SCH ×3 (10:51→21:19)
[2021-06-21] MEDS: Preparation H Ointment 57 GM TUBE TP SCH ×3 (10:52→21:27)
[2021-06-21] MEDS: Acetaminophen 325 MG TABLET PO PRN (21:18)
[2021-06-21] MEDS: QUEtiapine Fumarate 100 MG TABLET PO SCH (21:19)
[2021-06-21] MEDS: Melatonin 3 MG TABLET PO SCH (21:19)
[2021-06-22] MEDS: Preparation H Ointment 57 GM TUBE TP SCH ×3 (11:17→23:36)
[2021-06-22] MEDS: QUEtiapine Fumarate 25 MG TABLET PO SCH ×2 (11:22→16:20)
[2021-06-22] MEDS: Metoprolol XL (24 HR) Succ 50 MG TAB.ER.24H PO SCH (11:22)
[2021-06-22] MEDS: traZODone 50 MG TABLET PO SCH ×3 (11:22→21:28)
[2021-06-22] MEDS: Multivit/Ca/Min/Fe/FA 1 TAB TABLET PO SCH (11:22)
[2021-06-22] MEDS: Lactobacillus 1 EACH CAP.SPRINK PO SCH ×2 (11:22→21:28)
[2021-06-22] MEDS: Loratadine 10 MG TABLET PO SCH (11:22)
[2021-06-22] MEDS: Gabapentin 300 MG CAPSULE PO SCH (11:22)
[2021-06-22] MEDS: QUEtiapine Fumarate 100 MG TABLET PO SCH (21:29)
[2021-06-22] MEDS: Melatonin 3 MG TABLET PO SCH (21:29)
[2021-06-23] MEDS: Gabapentin 300 MG CAPSULE PO SCH (09:37)
[2021-06-23] MEDS: Metoprolol XL (24 HR) Succ 50 MG TAB.ER.24H PO SCH (09:37)
[2021-06-23] MEDS: Preparation H Ointment 57 GM TUBE TP SCH ×3 (09:37→20:23)
[2021-06-23] MEDS: traZODone 50 MG TABLET PO SCH ×3 (09:37→20:22)
[2021-06-23] MEDS: QUEtiapine Fumarate 25 MG TABLET PO SCH ×2 (09:37→15:51)
[2021-06-23] MEDS: Multivit/Ca/Min/Fe/FA 1 TAB TABLET PO SCH (09:37)
[2021-06-23] MEDS: Loratadine 10 MG TABLET PO SCH (09:37)
[2021-06-23] MEDS: Lactobacillus 1 EACH CAP.SPRINK PO SCH ×2 (09:37→20:29)
[2021-06-23] MEDS: Melatonin 3 MG TABLET PO SCH (20:21)
[2021-06-23] MEDS: QUEtiapine Fumarate 100 MG TABLET PO SCH (20:22)
[2021-06-24] MEDS: Lactobacillus 1 EACH CAP.SPRINK PO SCH ×2 (10:24→21:36)
[2021-06-24] MEDS: QUEtiapine Fumarate 25 MG TABLET PO SCH ×2 (10:24→15:20)
[2021-06-24] MEDS: Multivit/Ca/Min/Fe/FA 1 TAB TABLET PO SCH (10:24)
[2021-06-24] MEDS: Loratadine 10 MG TABLET PO SCH (10:24)
[2021-06-24] MEDS: Preparation H Ointment 57 GM TUBE TP SCH ×3 (10:25→21:37)
[2021-06-24] MEDS: Metoprolol XL (24 HR) Succ 50 MG TAB.ER.24H PO SCH (10:25)
[2021-06-24] MEDS: traZODone 50 MG TABLET PO SCH ×3 (10:25→21:36)
[2021-06-24] MEDS: Gabapentin 300 MG CAPSULE PO SCH (10:25)
[2021-06-24] MEDS: QUEtiapine Fumarate 100 MG TABLET PO SCH (21:36)
[2021-06-24] MEDS: Melatonin 3 MG TABLET PO SCH (21:36)
[2021-06-25] MEDS: Acetaminophen 325 MG TABLET PO PRN (02:36)
[2021-06-25] MEDS: Gabapentin 300 MG CAPSULE PO SCH (09:07)
[2021-06-25] MEDS: Multivit/Ca/Min/Fe/FA 1 TAB TABLET PO SCH (09:07)
[2021-06-25] MEDS: Lactobacillus 1 EACH CAP.SPRINK PO SCH ×2 (09:07→19:54)
[2021-06-25] MEDS: Preparation H Ointment 57 GM TUBE TP SCH ×3 (09:08→20:01)
[2021-06-25] MEDS: Metoprolol XL (24 HR) Succ 50 MG TAB.ER.24H PO SCH (09:08)
[2021-06-25] MEDS: traZODone 50 MG TABLET PO SCH ×3 (09:08→19:54)
[2021-06-25] MEDS: Loratadine 10 MG TABLET PO SCH (09:08)
[2021-06-25] MEDS: QUEtiapine Fumarate 25 MG TABLET PO SCH ×2 (09:08→15:41)
[2021-06-25] MEDS: QUEtiapine Fumarate 100 MG TABLET PO SCH (19:54)
[2021-06-25] MEDS: Melatonin 3 MG TABLET PO SCH (19:54)
[2021-06-26] MEDS: Loratadine 10 MG TABLET PO SCH (10:08)
[2021-06-26] MEDS: traZODone 50 MG TABLET PO SCH ×3 (10:09→19:12)
[2021-06-26] MEDS: Lactobacillus 1 EACH CAP.SPRINK PO SCH ×2 (10:09→19:11)
[2021-06-26] MEDS: QUEtiapine Fumarate 25 MG TABLET PO SCH ×2 (10:09→15:59)
[2021-06-26] MEDS: Metoprolol XL (24 HR) Succ 50 MG TAB.ER.24H PO SCH (10:09)
[2021-06-26] MEDS: Multivit/Ca/Min/Fe/FA 1 TAB TABLET PO SCH (10:09)
[2021-06-26] MEDS: Gabapentin 300 MG CAPSULE PO SCH (10:09)
[2021-06-26] MEDS: Preparation H Ointment 57 GM TUBE TP SCH ×3 (10:21→18:49)
[2021-06-26] MEDS: Melatonin 3 MG TABLET PO SCH (19:11)
[2021-06-26] MEDS: QUEtiapine Fumarate 100 MG TABLET PO SCH (19:12)
[2021-06-27] MEDS: Gabapentin 300 MG CAPSULE PO SCH (09:42)
[2021-06-27] MEDS: Multivit/Ca/Min/Fe/FA 1 TAB TABLET PO SCH (09:42)
[2021-06-27] MEDS: Metoprolol XL (24 HR) Succ 50 MG TAB.ER.24H PO SCH (09:43)
[2021-06-27] MEDS: Loratadine 10 MG TABLET PO SCH (09:43)
[2021-06-27] MEDS: traZODone 50 MG TABLET PO SCH ×3 (09:43→20:44)
[2021-06-27] MEDS: Lactobacillus 1 EACH CAP.SPRINK PO SCH ×2 (09:43→20:43)
[2021-06-27] MEDS: QUEtiapine Fumarate 25 MG TABLET PO SCH ×2 (09:44→13:51)
[2021-06-27] MEDS: Preparation H Ointment 57 GM TUBE TP SCH ×3 (09:44→21:53)
[2021-06-27] MEDS: Melatonin 3 MG TABLET PO SCH (20:42)
[2021-06-27] MEDS: QUEtiapine Fumarate 100 MG TABLET PO SCH (20:44)
[2021-06-28] MEDS: Multivit/Ca/Min/Fe/FA 1 TAB TABLET PO SCH (08:44)
[2021-06-28] MEDS: Loratadine 10 MG TABLET PO SCH (08:44)
[2021-06-28] MEDS: Metoprolol XL (24 HR) Succ 50 MG TAB.ER.24H PO SCH (08:44)
[2021-06-28] MEDS: QUEtiapine Fumarate 25 MG TABLET PO SCH ×2 (08:45→15:14)
[2021-06-28] MEDS: Gabapentin 300 MG CAPSULE PO SCH (08:45)
[2021-06-28] MEDS: Lactobacillus 1 EACH CAP.SPRINK PO SCH ×2 (08:45→20:07)
[2021-06-28] MEDS: traZODone 50 MG TABLET PO SCH ×3 (08:45→20:07)
[2021-06-28] MEDS: Preparation H Ointment 57 GM TUBE TP SCH ×3 (08:45→20:08)
[2021-06-28 19:48] LABS: Hematocrit 42.5 % (37.5-50.1); Mean Corpuscular HGB Conc 30.6 g/dL (31.6-35.5); Mean Corpuscular Hemoglobin 25.7 pg (28.0-33.3); Mean Platelet Volume 9.8 fL (9.4-12.4); Platelet Count 262 K/mcL (140-400); Red Blood Count 5.06 M/mcL (4.19-5.50); Red Cell Distribution Width 17.4 % (11.5-14.5)
[2021-06-28] MEDS: QUEtiapine Fumarate 100 MG TABLET PO SCH (20:07)
[2021-06-28] MEDS: Melatonin 3 MG TABLET PO SCH (20:08)
[2021-06-28] MEDS: Acetaminophen 325 MG TABLET PO PRN (20:47)
[2021-06-28] MEDS ORDERED: Saline Nasal Spray 44 ML BOTTLE NS PRN (23:09)
[2021-06-29] MEDS: Metoprolol XL (24 HR) Succ 50 MG TAB.ER.24H PO SCH (09:04)
[2021-06-29] MEDS: QUEtiapine Fumarate 25 MG TABLET PO SCH ×2 (09:04→15:44)
[2021-06-29] MEDS: Gabapentin 300 MG CAPSULE PO SCH (09:04)
[2021-06-29] MEDS: Multivit/Ca/Min/Fe/FA 1 TAB TABLET PO SCH (09:04)
[2021-06-29] MEDS: Lactobacillus 1 EACH CAP.SPRINK PO SCH ×2 (09:05→21:38)
[2021-06-29] MEDS: traZODone 50 MG TABLET PO SCH ×3 (09:05→21:39)
[2021-06-29] MEDS: Loratadine 10 MG TABLET PO SCH (09:05)
[2021-06-29] MEDS: Preparation H Ointment 57 GM TUBE TP SCH ×3 (09:16→21:39)
[2021-06-29] MEDS: QUEtiapine Fumarate 100 MG TABLET PO SCH (21:39)
[2021-06-29] MEDS: Acetaminophen 325 MG TABLET PO PRN (21:39)
[2021-06-29] MEDS: Melatonin 3 MG TABLET PO SCH (21:39)
[2021-06-30] MEDS: Lactobacillus 1 EACH CAP.SPRINK PO SCH ×2 (10:13→21:12)
[2021-06-30] MEDS: QUEtiapine Fumarate 25 MG TABLET PO SCH ×2 (10:13→15:51)
[2021-06-30] MEDS: Multivit/Ca/Min/Fe/FA 1 TAB TABLET PO SCH (10:13)
[2021-06-30] MEDS: Gabapentin 300 MG CAPSULE PO SCH (10:13)
[2021-06-30] MEDS: Loratadine 10 MG TABLET PO SCH (10:13)
[2021-06-30] MEDS: Metoprolol XL (24 HR) Succ 50 MG TAB.ER.24H PO SCH (10:13)
[2021-06-30] MEDS: traZODone 50 MG TABLET PO SCH ×3 (10:14→21:12)
[2021-06-30] MEDS: Preparation H Ointment 57 GM TUBE TP SCH ×3 (12:18→21:13)
[2021-06-30] MEDS: Acetaminophen 325 MG TABLET PO PRN (21:12)
[2021-06-30] MEDS: QUEtiapine Fumarate 100 MG TABLET PO SCH (21:12)
[2021-06-30] MEDS: Simethicone 80 MG TAB.CHEW PO PRN (21:12)
[2021-06-30] MEDS: Melatonin 3 MG TABLET PO SCH (21:12)
[2021-07-01] MEDS: Loratadine 10 MG TABLET PO SCH (07:20)
[2021-07-01] MEDS: Lactobacillus 1 EACH CAP.SPRINK PO SCH ×2 (07:20→20:54)
[2021-07-01] MEDS: Multivit/Ca/Min/Fe/FA 1 TAB TABLET PO SCH (07:20)
[2021-07-01] MEDS: QUEtiapine Fumarate 25 MG TABLET PO SCH ×2 (07:20→15:12)
[2021-07-01] MEDS: Simethicone 80 MG TAB.CHEW PO PRN (07:20)
[2021-07-01] MEDS: Gabapentin 300 MG CAPSULE PO SCH (07:20)
[2021-07-01] MEDS: traZODone 50 MG TABLET PO SCH ×3 (07:21→20:54)
[2021-07-01] MEDS: Preparation H Ointment 57 GM TUBE TP SCH ×3 (07:21→20:55)
[2021-07-01] MEDS: Metoprolol XL (24 HR) Succ 50 MG TAB.ER.24H PO SCH (07:21)
[2021-07-01] MEDS: QUEtiapine Fumarate 100 MG TABLET PO SCH (20:54)
[2021-07-01] MEDS: Melatonin 3 MG TABLET PO SCH (20:54)
[2021-07-02] MEDS: Preparation H Ointment 57 GM TUBE TP SCH ×3 (11:10→21:05)
[2021-07-02] MEDS: Multivit/Ca/Min/Fe/FA 1 TAB TABLET PO SCH (11:13)
[2021-07-02] MEDS: Lactobacillus 1 EACH CAP.SPRINK PO SCH ×2 (11:14→21:05)
[2021-07-02] MEDS: QUEtiapine Fumarate 25 MG TABLET PO SCH ×2 (11:14→14:06)
[2021-07-02] MEDS: Gabapentin 300 MG CAPSULE PO SCH (11:14)
[2021-07-02] MEDS: Loratadine 10 MG TABLET PO SCH (11:14)
[2021-07-02] MEDS: Metoprolol XL (24 HR) Succ 50 MG TAB.ER.24H PO SCH (11:14)
[2021-07-02] MEDS: traZODone 50 MG TABLET PO SCH ×3 (11:14→21:04)
[2021-07-02] MEDS: Acetaminophen 325 MG TABLET PO PRN ×2 (14:06→21:04)
[2021-07-02] MEDS: QUEtiapine Fumarate 100 MG TABLET PO SCH (21:05)
[2021-07-02] MEDS: Melatonin 3 MG TABLET PO SCH (21:05)
[2021-07-03] MEDS: Loratadine 10 MG TABLET PO SCH (07:33)
[2021-07-03] MEDS: Lactobacillus 1 EACH CAP.SPRINK PO SCH ×2 (07:33→21:51)
[2021-07-03] MEDS: Acetaminophen 325 MG TABLET PO PRN ×2 (07:33→21:50)
[2021-07-03] MEDS: Metoprolol XL (24 HR) Succ 50 MG TAB.ER.24H PO SCH (07:33)
[2021-07-03] MEDS: Gabapentin 300 MG CAPSULE PO SCH (07:33)
[2021-07-03] MEDS: QUEtiapine Fumarate 25 MG TABLET PO SCH ×2 (07:33→14:57)
[2021-07-03] MEDS: Multivit/Ca/Min/Fe/FA 1 TAB TABLET PO SCH (07:33)
[2021-07-03] MEDS: traZODone 50 MG TABLET PO SCH ×3 (07:33→21:51)
[2021-07-03] MEDS: Preparation H Ointment 57 GM TUBE TP SCH ×3 (07:34→21:42)
[2021-07-03] MEDS ORDERED: Artificial Tears SOLN 15 ML BOTTLE BOTH EYES PRN (12:48)
[2021-07-03] MEDS: Melatonin 3 MG TABLET PO SCH (21:50)
[2021-07-03] MEDS: QUEtiapine Fumarate 100 MG TABLET PO SCH (21:50)
[2021-07-04 06:51] LABS: Basophils # 0.1 K/mcL (0.0-0.2); Basophils % 0.6 %; Eosinophils # 0.4 K/mcL (0.0-0.6); Eosinophils % 4.3 %; Hematocrit 38.3 % (37.5-50.1); Hemoglobin 11.8 g/dL (12.9-16.9); Immature Granulocytes % 0.4 % (0-4); Lymphocytes # 2.6 K/mcL (0.6-4.6); Lymphocytes % 27.4 %; Mean Corpuscular HGB Conc 30.8 g/dL (31.6-35.5); Mean Corpuscular Hemoglobin 25.3 pg (28.0-33.3); Mean Platelet Volume 9.8 fL (9.4-12.4); Monocytes # 1.2 K/mcL (0.0-1.3); Monocytes % 12.1 %; Neutrophils # 5.3 K/mcL (1.6-8.9); Platelet Count 210 K/mcL (140-400); Red Blood Count 4.67 M/mcL (4.19-5.50); Segmented Neutrophils % 55.2 %; White Blood Count 9.5 K/mcL (4.3-11.1)
[2021-07-04 07:12] LABS: BUN/Creatinine Ratio 22 (6-26); Blood Urea Nitrogen 26 mg/dL (8-23); Calcium 8.9 mg/dL (8.6-10.3); Carbon Dioxide 26 mEq/L (23-29); Chloride 107 mEq/L (98-107); Glucose 104 mg/dL (70-105); Osmolality,Calculated 291 (280-300); Potassium 4.1 mEq/L (3.5-5.1); Sodium 138 mEq/L (136-145); eGFR For African Americans > 60 (> 60); eGFR For Non-African Americans 58 (> 60)
[2021-07-04] MEDS: QUEtiapine Fumarate 25 MG TABLET PO SCH ×2 (10:25→17:44)
[2021-07-04] MEDS: Lactobacillus 1 EACH CAP.SPRINK PO SCH ×2 (10:25→21:42)
[2021-07-04] MEDS: traZODone 50 MG TABLET PO SCH ×3 (10:25→21:41)
[2021-07-04] MEDS: Multivit/Ca/Min/Fe/FA 1 TAB TABLET PO SCH (10:25)
[2021-07-04] MEDS: Metoprolol XL (24 HR) Succ 50 MG TAB.ER.24H PO SCH (10:25)
[2021-07-04] MEDS: Preparation H Ointment 57 GM TUBE TP SCH ×3 (10:25→21:42)
[2021-07-04] MEDS: Gabapentin 300 MG CAPSULE PO SCH (10:25)
[2021-07-04] MEDS: Loratadine 10 MG TABLET PO SCH (10:25)
[2021-07-04] MEDS: QUEtiapine Fumarate 100 MG TABLET PO SCH (21:41)
[2021-07-04] MEDS: Acetaminophen 325 MG TABLET PO PRN (21:41)
[2021-07-04] MEDS: Melatonin 3 MG TABLET PO SCH (21:42)
[2021-07-04 23:22] VITALS: BP 120/59; PULSE 83; TEMP 98.3; O2SAT 95
[2021-07-05] MEDS: Loratadine 10 MG TABLET PO SCH (11:27)
[2021-07-05] MEDS: Preparation H Ointment 57 GM TUBE TP SCH ×3 (11:27→21:30)
[2021-07-05] MEDS: Gabapentin 300 MG CAPSULE PO SCH (11:27)
[2021-07-05] MEDS: traZODone 50 MG TABLET PO SCH ×3 (11:27→21:29)
[2021-07-05] MEDS: Multivit/Ca/Min/Fe/FA 1 TAB TABLET PO SCH (11:27)
[2021-07-05] MEDS: Metoprolol XL (24 HR) Succ 50 MG TAB.ER.24H PO SCH (11:27)
[2021-07-05] MEDS: QUEtiapine Fumarate 25 MG TABLET PO SCH ×2 (11:27→16:59)
[2021-07-05] MEDS: Lactobacillus 1 EACH CAP.SPRINK PO SCH ×2 (11:27→21:29)
[2021-07-05] MEDS: QUEtiapine Fumarate 100 MG TABLET PO SCH (21:29)
[2021-07-05] MEDS: Acetaminophen 325 MG TABLET PO PRN (21:29)
[2021-07-05] MEDS: Melatonin 3 MG TABLET PO SCH (21:29)
[2021-07-06] MEDS: traZODone 50 MG TABLET PO SCH ×3 (11:26→20:48)
[2021-07-06] MEDS: Metoprolol XL (24 HR) Succ 50 MG TAB.ER.24H PO SCH (11:27)
[2021-07-06] MEDS: QUEtiapine Fumarate 25 MG TABLET PO SCH ×2 (11:28→17:05)
[2021-07-06] MEDS: Lactobacillus 1 EACH CAP.SPRINK PO SCH ×2 (11:30→20:48)
[2021-07-06] MEDS: Gabapentin 300 MG CAPSULE PO SCH (11:31)
[2021-07-06] MEDS: Loratadine 10 MG TABLET PO SCH (11:32)
[2021-07-06] MEDS: Multivit/Ca/Min/Fe/FA 1 TAB TABLET PO SCH (11:34)
[2021-07-06] MEDS: Preparation H Ointment 57 GM TUBE TP SCH ×3 (11:41→20:49)
[2021-07-06] MEDS: Acetaminophen 325 MG TABLET PO PRN (20:47)
[2021-07-06] MEDS: Melatonin 3 MG TABLET PO SCH (20:48)
[2021-07-06] MEDS: QUEtiapine Fumarate 100 MG TABLET PO SCH (20:48)
[2021-07-07] MEDS: Loratadine 10 MG TABLET PO SCH (10:24)
[2021-07-07] MEDS: Multivit/Ca/Min/Fe/FA 1 TAB TABLET PO SCH (10:24)
[2021-07-07] MEDS: Lactobacillus 1 EACH CAP.SPRINK PO SCH (10:24)
[2021-07-07] MEDS: Gabapentin 300 MG CAPSULE PO SCH (10:24)
[2021-07-07] MEDS: Metoprolol XL (24 HR) Succ 50 MG TAB.ER.24H PO SCH (10:24)
[2021-07-07] MEDS: QUEtiapine Fumarate 25 MG TABLET PO SCH ×2 (10:24→13:29)
[2021-07-07] MEDS: traZODone 50 MG TABLET PO SCH ×2 (10:25→13:29)
[2021-07-07] MEDS: Preparation H Ointment 57 GM TUBE TP SCH ×2 (10:39→13:29)
[2021-07-07 13:00] LABS: Influenza A PCR Negative (Negative); Influenza B PCR Negative (Negative); Resp. Syncytial Virus PCR Negative (Negative)
[2021-07-07 13:11] LABS: SARS-CoV-2 by PCR (In House) Negative (Negative)
== END 2021-07-07 13:59 | DRG 57 ==
LOC: 3ANU 11:37 → EMEROOARM 11:37 → 3ANU 14:41 → SUATTDRO 03-29 15:45 → 3ANU 04-09 03:43 → 2ANU 04-13 02:51
PROVIDERS: ADMIT Internal Medicine; ATTEND Internal Medicine